=== PATIENT | female | born 1930 | race Caucasian/White ===

== ENCOUNTER 2017-08-16 12:25 | Observation (INO) ==
--- NOTE | 2017-08-16 12:43 | Emergency Department Note ---
Disposition Clinical Impression: SOB (shortness of breath) Upper respiratory infection Qualifiers: URI type: unspecified URI Qualified Code(s): J06.9 - Acute upper respiratory infection, unspecified Disposition: Admitted As Inpatient Condition: Fair Referrals: Tim Castro MD [Primary Care Provider] - Forms: ED Satisfaction Letter SOB HPI - General Chief Complaint: ED Upper Respiratory Infection Stated Complaint: cough, sinus drainage Time Seen by Provider: 08/16/17 12:38 Source: patient, family Mode of arrival: private vehicle Limitations: age Nursing Notes Reviewed: Yes Vital Signs Reviewed: Yes - History of Present Illness Patient relates that she has had increased cough and dyspnea over the last 4 days. She is seen by her primary care provider yesterday and was started on Augmentin. Today she is continued with dyspnea on exertion and oxygen saturations dropping to 87-89% with coughing or activity. She is not on home oxygen. She has some generalized weakness. Her cough is now productive of a scant amount of yellow phlegm. She reports some chills but no fever. She denies any chest pain or palpitations but does have some chest soreness with her coughing. She denies abdominal pain, back pain, nausea, vomiting or diarrhea. She denies any lower extremity complaints. She has been exposed to another family member who had a "chest cold". She is concerned this feels somewhat like she had with a pneumonia in 2013. Pt Subjective Complaint: shortness of breath, cough Onset (ago): day(s) Context: recent illness Severity: moderate Consistency/Duration: gradually worsening Improves with: rest Worsens with: exertion, coughing Associated symptoms: Reports: pain with inspiration, cough, sputum production. Denies: chest pain, fever, wheezing, orthopnea, lower extremity pain, polyuria, polydipsia, parasthesias, palpitations, hemoptysis, diaphoresis, nausea/vomiting , syncope, abdominal pain, rash Treatment prior to arrival: other (Antibiotic) Cough present: Yes Cough Description: Involuntary, Productive, Moist, Hacking Cough Frequency: Intermittent Sputum production: Yes Sputum Amount: Small Sputum Color: Yellow - Related Data Home oxygen amount: none Home Medications Medication Instructions Recorded Confirmed Aspirin 81 mg PO DAILY #0 03/29/15 08/16/17 Cholecalciferol (D-3) [Vitamin D] 2,000 unit PO DAILY #0 03/29/15 08/16/17 Cyclosporine [Restasis] 1 each OP BID #0 03/29/15 08/16/17 Diltiazem [Cardizem] 30 mg PO BID #0 03/29/15 08/16/17 Labetalol [Trandate] 100 mg PO BID #0 03/29/15 08/16/17 Losartan [Cozaar] 25 mg PO DAILY #0 03/29/15 08/16/17 Mv-Min/FA/Vit K/Lycop/Lut/Zeax 1 each PO DAILY #0 03/29/15 08/16/17 [Ocuvite Eye Plus Multi Tablet] Tramadol HCl [Ultram] 50 mg PO QID PRN #0 03/29/15 08/16/17 Calcium Carbonate/Vitamin D3 1 each PO BID 04/03/15 08/16/17 [Calcium 250+D Tablet] Cyanocobalamin (Vitamin B-12) 1,000 mg PO DAILY 04/03/15 08/16/17 [Vitamin B12] Pantoprazole Sodium [Protonix] 40 mg PO DAILY 04/03/15 08/16/17 Furosemide 20 mg PO DAILY PRN 03/18/16 08/16/17 Potassium Chloride [K-Tab ER] 20 meq PO DAILY 03/18/16 08/16/17 Alendronate Sodium [Fosamax] 70 mg PO QWEEK 08/19/16 08/16/17 Fluticasone Propionate Nasal 50 mcg NS BID PRN 08/19/16 08/16/17 [Flonase] Nitroglycerin [Nitrostat] 0.4 mg SL Q5M PRN 08/19/16 08/16/17 Amoxicillin/Clavulanate [Augmentin] 500 mg PO BIDWM 08/16/17 08/16/17 Clopidogrel [Plavix] 75 mg PO DAILY 08/16/17 08/16/17 Previous Rx's Medication Instructions Recorded Lactobacillus [Culturelle] 1 each PO BID #4 cap.sprink 04/06/15 Loratadine [Claritin] 10 mg PO DAILY #30 tablet 04/10/16 Acetaminophen [Tylenol] 650 mg PO Q6HR PRN #0 tablet 08/20/16 Atorvastatin [Lipitor] 80 mg PO HS tablet 08/20/16 Allergies Allergy/AdvReac Type Severity Reaction Status Date / Time cephalexin [From Keflex] Allergy Intermediate swelling Verified 06/28/17 18:12 lips hydrocodone Allergy Intermediate swelling Verified 06/28/17 18:12 lips tongue All systems ED: reviewed and negative except as stated. Past Medical History - Past Medical History Attestation: Yes The following information was validated with the patient. Source: patient, old records reviewed, obtained from family, nursing notes reviewed Medical history: Reports: arthritis, atrial fibrillation, coronary artery disease, GERD, hyperlipidemia, hypertension, myocardial infarction, renal disease, TIA. 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 Absent: conjunctival injection - ENT ENT exam: normal exam, normal oropharynx, mucous membranes moist - Neck Neck exam: Present: normal inspection, full ROM, trachea midline - Chest Chest inspection: Present: normal inspection, symmetric chest wall rise - Respiratory Respiratory exam: Present: normal lung sounds bilaterally, prolonged expiratory phase, other (Occasional harsh cough.). Absent: respiratory distress, wheezes - Cardiovascular Cardiovascular exam: Present: regular rate, normal rhythm, normal heart sounds. Absent: tachycardia - Abdominal Exam Abdominal exam: Present: soft, Non-Tender, normal bowel sounds. Absent: tenderness, distention, guarding, rebound, rigidity - Extremities Exam Extremities exam: Present: normal inspection, full ROM, normal capillary refill. Absent: tenderness, pedal edema, calf tenderness - Expanded Lower Extremity Exam Neurovascular/Tendon exam: Present: normal capillary refill. Absent: motor deficit, sensory deficit, tendon deficit Gait: not tested/not observed - Back Exam Back exam: Present: normal inspection, full ROM. Absent: tenderness, CVA tenderness (R), CVA tenderness (L) - Neurological Exam Neurological exam: Present: alert, oriented X3 - Psychiatric Psychiatric exam: Present: normal affect, normal mood - Skin Skin exam: Present: warm, dry, intact, normal color. Absent: cyanosis, diaphoresis, pallor Course Course Narrative: All testing has been discussed with the patient and family. I have placed a page to Dr. Benoit to discuss inpatient care for her stabilization prior for discharge. She may need assessment for home oxygen if she keeps having exertional hypoxia. Vital Signs Temperature 98.3 F 08/16/17 12:36 Pulse Rate 81 08/16/17 12:36 Respiratory Rate 22 08/16/17 12:36 Blood Pressure 149/67 08/16/17 12:36 O2 Sat by Pulse Oximetry 93 08/16/17 12:36 Temperature 98.3 F 08/16/17 12:36 Pulse Rate 79 08/16/17 13:18 Respiratory Rate 24 08/16/17 13:18 Blood Pressure 141/62 08/16/17 13:18 O2 Sat by Pulse Oximetry 93 08/16/17 13:18 Oxygen Delivery Oxygen Delivery Room Air Shortness of Breath/Dyspnea - Differential Diagnosis Likely: congestive heart failure, pneumonia - Lab Data Lab results reviewed: Yes I reviewed the patient's lab results. Result diagrams: 08/16/17 13:06 08/16/17 13:06 Lab Results 08/16/17 08/16/17 08/16/17 Range/Units 13:00 13:06 13:06 WBC 4.4 (4.3-11.1) K/mcL RBC 3.80 L (3.82-4.97) M/mcL Hgb 11.6 (11.5-15.4) g/dL Hct 36.3 (35.3-44.9) % MCV 95.5 (83.0-100.0) fL MCH 30.5 (28.0-33.3) pg MCHC 32.0 (31.6-35.5) g/dL RDW 14.1 (11.5-14.5) % Plt Count 228 (140-400) K/mcL MPV 10.3 (9.4-12.4) fL Immature Gran % 0.5 (0-4) % Seg Neutrophils % 57.2 % Lymphocytes % 23.9 % Monocytes % 15.4 % Eosinophils % 2.5 % Basophils % 0.5 % Neutrophils # 2.5 (1.6-8.9) K/mcL Lymphocytes # 1.0 (0.6-4.6) K/mcL Monocytes # 0.7 (0.0-1.3) K/mcL Eosinophils # 0.1 (0.0-0.6) K/mcL Basophils # 0.0 (0.0-0.2) K/mcL Sodium 138 (136-145) mEq/L Potassium 4.7 (3.5-5.1) mEq/L Chloride 102 (98-107) mEq/L Carbon Dioxide 31 H (23-29) mEq/L BUN 12 (8-23) mg/dL Creatinine 0.96 (0.60-1.20) mg/dL Est GFR ( Amer) > 60 (> 60) Est GFR (Non-Af Amer) 55 L (> 60) BUN/Creatinine Ratio 13 (6-26) Glucose 108 H (70-105) mg/dL Calculated Osmolality 286 (280-300) Lactic Acid (0.5-2.2) mmol/L Calcium 9.1 (8.6-10.3) mg/dL Total Bilirubin 0.4 (0.3-1.0) mg/dL Direct Bilirubin 0.1 (0.0-0.2) mg/dL Indirect Bilirubin 0.3 (0.0-1.2) mg/dL AST 15 (13-39) Units/L ALT 9 (7-52) Units/L Alkaline Phosphatase 51 (34-104) Units/L B-Natriuretic Peptide 77 (Less than 100) pg/mL Serum Total Protein 6.1 L (6.4-8.9) g/dL Albumin 3.8 (3.5-5.7) g/dL Globulin 2.3 L (2.4-3.5) g/dL Albumin/Globulin Ratio 1.7 (1.1-2.2) 08/16/17 Range/Units 13:06 WBC (4.3-11.1) K/mcL RBC (3.82-4.97) M/mcL Hgb (11.5-15.4) g/dL Hct (35.3-44.9) % MCV (83.0-100.0) fL MCH (28.0-33.3) pg MCHC (31.6-35.5) g/dL RDW (11.5-14.5) % Plt Count (140-400) K/mcL MPV (9.4-12.4) fL Immature Gran % (0-4) % Seg Neutrophils % % Lymphocytes % % Monocytes % % Eosinophils % % Basophils % % Neutrophils # (1.6-8.9) K/mcL Lymphocytes # (0.6-4.6) K/mcL Monocytes # (0.0-1.3) K/mcL Eosinophils # (0.0-0.6) K/mcL Basophils # (0.0-0.2) K/mcL Sodium (136-145) mEq/L Potassium (3.5-5.1) mEq/L Chloride (98-107) mEq/L Carbon Dioxide (23-29) mEq/L BUN (8-23) mg/dL Creatinine (0.60-1.20) mg/dL Est GFR ( Amer) (> 60) Est GFR (Non-Af Amer) (> 60) BUN/Creatinine Ratio (6-26) Glucose (70-105) mg/dL Calculated Osmolality (280-300) Lactic Acid 1.5 (0.5-2.2) mmol/L Calcium (8.6-10.3) mg/dL Total Bilirubin (0.3-1.0) mg/dL Direct Bilirubin (0.0-0.2) mg/dL Indirect Bilirubin (0.0-1.2) mg/dL AST (13-39) Units/L ALT (7-52) Units/L Alkaline Phosphatase (34-104) Units/L B-Natriuretic Peptide (Less than 100) pg/mL Serum Total Protein (6.4-8.9) g/dL Albumin (3.5-5.7) g/dL Globulin (2.4-3.5) g/dL Albumin/Globulin Ratio (1.1-2.2) - Radiology Data Radiology results reviewed: Yes I reviewed the patient's radiology results. Single view chest x-ray is performed. This does not demonstrate evidence for infiltrate, effusion, pneumothorax, foreign body or heart failure. The cardiac silhouette is enlarged. I do not see abnormality to the osseous structures of the chest. This is on my interpretation. Impressions Chest X-Ray 08/16/17 12:46 IMPRESSION: 1. No acute cardiopulmonary process. 2. Pulmonary vascular congestion and mild cardiomegaly. D/ / Franc Olmos MD / Franc Olmos MD Interpreting Provider: Franc Olmos MD - EKG Data EKG attestation: Yes I reviewed and interpreted this EKG. EKG shows normal: Reports: sinus rhythm, axis, intervals, ST-T waves Rate: Reports: normal (70) [place]/QRS: Reports: RBBB Interpretation: Reports: no acute changes
[2017-08-16] MEDS ORDERED: methylPREDNISolone 125 MG/2 ML VIAL IVP ONE (12:46)
[2017-08-16] MEDS ORDERED: Ipratropium/Albuterol Neb 3 ML IH ONE (12:46)
[2017-08-16] MEDS ORDERED: Levofloxacin 750 MG/150 ML 750 MG/150 ML BAG IVPB ONE (12:46)
[2017-08-16] MEDS ORDERED: Benzonatate 100 MG CAPSULE PO ONE (12:47)
[2017-08-16] MEDS ORDERED: 0.9 % Sodium Chloride 1,000 ML IVC SCH (13:00)
[2017-08-16 13:17] LABS: Basophils % 0.5 %; Eosinophils # 0.1 K/mcL (0.0-0.6); Eosinophils % 2.5 %; Hematocrit 36.3 % (35.3-44.9); Hemoglobin 11.6 g/dL (11.5-15.4); Immature Granulocytes % 0.5 % (0-4); Lymphocytes % 23.9 %; Mean Corpuscular Hemoglobin 30.5 pg (28.0-33.3); Mean Corpuscular Volume 95.5 fL (83.0-100.0); Mean Platelet Volume 10.3 fL (9.4-12.4); Monocytes # 0.7 K/mcL (0.0-1.3); Monocytes % 15.4 %; Neutrophils # 2.5 K/mcL (1.6-8.9); Platelet Count 228 K/mcL (140-400); Red Cell Distribution Width 14.1 % (11.5-14.5); Segmented Neutrophils % 57.2 %
[2017-08-16 13:34] LABS: Alanine Aminotransferase 9 Units/L (7-52); Albumin 3.8 g/dL (3.5-5.7); Albumin/Globulin Ratio 1.7 (1.1-2.2); Alkaline Phosphatase 51 Units/L (34-104); Aspartate Amino Transferase 15 Units/L (13-39); BUN/Creatinine Ratio 13 (6-26); Bilirubin,Direct 0.1 mg/dL (0.0-0.2); Bilirubin,Indirect 0.3 mg/dL (0.0-1.2); Bilirubin,Total 0.4 mg/dL (0.3-1.0); Blood Urea Nitrogen 12 mg/dL (8-23); Calcium 9.1 mg/dL (8.6-10.3); Carbon Dioxide 31 mEq/L (23-29); Chloride 102 mEq/L (98-107); Globulin 2.3 g/dL (2.4-3.5); Glucose 108 mg/dL (70-105); Osmolality,Calculated 286 (280-300); Potassium 4.7 mEq/L (3.5-5.1); Sodium 138 mEq/L (136-145); Total Protein 6.1 g/dL (6.4-8.9); eGFR For African Americans > 60 (> 60); eGFR For Non-African Americans 55 (> 60)
[2017-08-16] MEDS ORDERED: Albuterol 2.5 MG/3 ML NEBULIZER IH PRN (16:18)
[2017-08-16] MEDS ORDERED: Furosemide 20 MG TABLET PO PRN (16:18)
[2017-08-16] MEDS ORDERED: Acetaminophen 325 MG TABLET PO PRN (16:18)
[2017-08-16] MEDS ORDERED: Fluticasone Propionate Nasal 50 MCG/SPRAY BOTTLE NS PRN (16:18)
[2017-08-16] MEDS ORDERED: Nitroglycerin 0.4 MG TAB.SUBL SL PRN (16:18)
[2017-08-16] MEDS ORDERED: Naloxone 0.4 MG/ML INJ IVP PRN (16:18)
[2017-08-16] MEDS ORDERED: Benzonatate 100 MG CAPSULE PO PRN (16:18)
[2017-08-16] MEDS ORDERED: traMADol 50 MG TABLET PO PRN (16:18)
[2017-08-16] MEDS: 0.9 % Sodium Chloride 1,000 ML IVC SCH (17:00)
[2017-08-16] MEDS: Ipratropium/Albuterol Neb 3 ML IH SCH ×2 (17:18→22:17)
--- NOTE | 2017-08-16 20:03 | Electrocardiograph Report ---
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
[2017-08-16] MEDS: Lactobacillus 1 EACH CAP.SPRINK PO SCH (20:55)
[2017-08-16] MEDS: predniSONE 20 MG TABLET PO SCH (20:55)
[2017-08-16] MEDS: RESTASIS OPTH OP SCH (21:00)
[2017-08-17] MEDS: Ipratropium/Albuterol Neb 3 ML IH SCH ×4 (04:15→22:45)
[2017-08-17] MEDS: 0.9 % Sodium Chloride 1,000 ML IVC SCH ×2 (05:58→21:00)
[2017-08-17] MEDS: Loratadine 10 MG TABLET PO SCH (08:59)
[2017-08-17] MEDS: Lactobacillus 1 EACH CAP.SPRINK PO SCH ×2 (09:00→20:55)
[2017-08-17] MEDS: Multivit/Ca/Min/Fe/FA 1 TAB TABLET PO SCH (09:00)
[2017-08-17] MEDS: Cyanocobalamin (B-12) 1,000 MCG TABLET PO SCH (09:01)
[2017-08-17] MEDS: predniSONE 20 MG TABLET PO SCH ×2 (09:01→17:16)
[2017-08-17] MEDS: Cholecalciferol (D-3) 1,000 UNIT TABLET PO SCH (09:01)
[2017-08-17] MEDS: Aspirin 81 MG TAB.CHEW PO SCH (09:01)
[2017-08-17] MEDS: RESTASIS OPTH OP SCH (09:02)
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
[2017-08-17] MEDS ORDERED: Levofloxacin 250 MG/50 ML 250 MG/50 ML BAG IVPB SCH (13:00)
[2017-08-18] MEDS: Ipratropium/Albuterol Neb 3 ML IH SCH ×2 (04:42→09:51)
[2017-08-18] MEDS: RESTASIS OPTH OP SCH (05:00)
[2017-08-18] MEDS: Lactobacillus 1 EACH CAP.SPRINK PO SCH (08:41)
[2017-08-18] MEDS: predniSONE 20 MG TABLET PO SCH (08:42)
[2017-08-18] MEDS: Aspirin 81 MG TAB.CHEW PO SCH (08:42)
[2017-08-18] MEDS: Loratadine 10 MG TABLET PO SCH (08:42)
[2017-08-18] MEDS: Cholecalciferol (D-3) 1,000 UNIT TABLET PO SCH (08:42)
[2017-08-18] MEDS: Cyanocobalamin (B-12) 1,000 MCG TABLET PO SCH (08:42)
[2017-08-18] MEDS: Multivit/Ca/Min/Fe/FA 1 TAB TABLET PO SCH (08:42)
[2017-08-18] MEDS ORDERED: Furosemide 20 MG TABLET PO SCH (09:00)
[2017-08-18 09:22] VITALS: BP 153/61
--- NOTE | 2017-08-18 09:49 | Discharge Summary ---
Date of Encounter: 08/18/17 Time of Encounter: 09:35 - Discharge Diagnosis (1) Bronchitis Priority: Primary Status: Acute (2) Hypoxemia Priority: Secondary Status: Chronic (3) Atrial fibrillation Priority: Secondary Status: Chronic Qualifiers: Atrial fibrillation type: paroxysmal Qualified Code(s): I48.0 - Paroxysmal atrial fibrillation (4) CKD (chronic kidney disease) stage 3, GFR 30-59 ml/min Priority: Secondary Status: Chronic (5) Hypertension Priority: Secondary Status: Chronic Qualifiers: Hypertension type: essential hypertension Qualified Code(s): I10 - Essential (primary) hypertension Hospital course: Ms. Castro is a 86 year old female who came to emergency room stating she had minimally productive cough with worsening dyspnea over the past week. She saw a PCP August 15 and was given a prescription for Augmentin. When she did not feel improved she came to emergency room. She was evaluated and felt to have possible URI. She was admitted to [facility] for ongoing care needs. Initial orders were written by the emergency room physician. I saw her on August 17 and performed the history and physical. She was given IV Levaquin and Solu- Medrol in emergency room. She remained afebrile during her hospital stay. She felt dyspneic on exertion so a 6 minute walk was ordered. Saturation decreased to 86% within the first minute. Oxygen was reapplied for patient comfort and safety. She will be discharged home with oxygen 2 L/m by nasal cannula 06/09 with portable gas and concentrator. 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 I reviewed past records and noted CT scan of chest done 04/03/2015 showed findings compatible with bronchiolitis of posterior right middle lobe and groundglass infiltrate in the right lower lobe. Follow-up chest CT was recommended in 3-6 months to document resolution. Patient reports no follow-up CT was done. I will let her discuss with her PCP Dr. Castro whether a follow-up CT is needed at this time. On August 18 she felt stable for discharge home. She will follow with her PCP Dr. Castro within 1 week. - Time Spent with Patient Total time spent providing and/or coordinating discharge services: - Discharge Medications Prescriptions: Albuterol Sulfate [Albuterol Inhaler] 2 puff IH Q4HR #1 hfa.aer.ad Lactobacillus [Culturelle] 1 each PO BID #6 cap.sprink levoFLOXacin [Levaquin] 250 mg PO DAILY #3 tablet Home Medications: Aspirin 81 mg PO DAILY #0 03/29/15 [History] Cholecalciferol (D-3) [Vitamin D] 2,000 unit PO DAILY #0 03/29/15 [History] Cyclosporine [Restasis] 1 each OP BID #0 03/29/15 [History] Diltiazem [Cardizem] 30 mg PO BID #0 03/29/15 [History] Labetalol [Trandate] 100 mg PO BID #0 03/29/15 [History] Losartan [Cozaar] 25 mg PO DAILY #0 03/29/15 [History] Mv-Min/FA/Vit K/Lycop/Lut/Zeax [Ocuvite Eye Plus Multi Tablet] 1 each PO DAILY # 0 03/29/15 [History] Tramadol HCl [Ultram] 50 mg PO QID PRN #0 03/29/15 [History] Calcium Carbonate/Vitamin D3 [Calcium 250+D Tablet] 1 each PO BID 04/03/15 [ History] Cyanocobalamin (Vitamin B-12) [Vitamin B12] 1,000 mg PO DAILY 04/03/15 [History] Pantoprazole Sodium [Protonix] 40 mg PO DAILY 04/03/15 [History] Lactobacillus [Culturelle] 1 each PO BID #4 cap.sprink 04/06/15 [Rx] Furosemide 20 mg PO DAILY PRN 03/18/16 [History] Potassium Chloride [K-Tab ER] 20 meq PO DAILY 03/18/16 [History] Alendronate Sodium [Fosamax] 70 mg PO QWEEK 08/19/16 [History] Fluticasone Propionate Nasal [Flonase] 50 mcg NS BID PRN 08/19/16 [History] Nitroglycerin [Nitrostat] 0.4 mg SL Q5M PRN 08/19/16 [History] Acetaminophen [Tylenol] 650 mg PO Q6HR PRN #0 tablet 08/20/16 [Rx] Atorvastatin [Lipitor] 80 mg PO HS tablet 08/20/16 [Rx] Clopidogrel [Plavix] 75 mg PO DAILY 08/16/17 [History] Albuterol Sulfate [Albuterol Inhaler] 2 puff IH Q4HR #1 hfa.aer.ad 08/18/17 [Rx] Lactobacillus [Culturelle] 1 each PO BID #6 cap.sprink 08/18/17 [Rx] Loratadine [Claritin] 10 mg PO DAILY PRN #30 tablet 08/18/17 [Rx] levoFLOXacin [Levaquin] 250 mg PO DAILY #3 tablet 08/18/17 [Rx] Allergies/Adverse Reactions: 3 Allergy/AdvReac Type Severity Reaction Status Date / Time cephalexin [From Keflex] Allergy Intermediate swelling Verified 06/28/17 18:12 lips hydrocodone Allergy Intermediate swelling Verified 06/28/17 18:12 lips tongue Date of admission: 08/16/17 15:53 Primary care physician: Tim Castro MD - Constitutional Vitals: Temp Pulse Resp BP Pulse Ox 98.3 F 74 20 153/61 95 08/18/17 07:00 08/18/17 07:00 08/18/17 07:00 08/18/17 07:00 08/18/17 08:30 - Patient Status Disposition: Home Health Service Condition: Fair - Discharge Instructions Follow Up With: Tim Castro MD [Primary Care Provider] - 1 week - Diet and Activity Activity: resume usual activities as tolerated, wear oxygen at all times Diet: advance to your usual diet
--- NOTE | 2017-08-18 10:00 | Physician Discharge Referral ---
Home Health/Hosp Referral Info Transfer to: Home Health Attending Provider: Cy Provider in Charge Post Discharge: PCP (Tim Castro M.D.) - Diagnosis (1) Bronchitis Priority: Primary Status: Acute (2) Hypoxemia Priority: Secondary Status: Chronic (3) Atrial fibrillation Priority: Secondary Status: Chronic (4) CKD (chronic kidney disease) stage 3, GFR 30-59 ml/min Priority: Secondary Status: Chronic (5) Hypertension Priority: Secondary Status: Chronic - Respiratory Orders Oxygen / L per min (2 L/m by nasal cannula 06/09.) Smoking Cessation: Smoking cessation has been advised. For more information, call the [place] Tobacco Quit Line at 2-213-BLMZ-NOW. - Diet/Nutrition Diet/Nutrition Orders: Regular - Activity Activity Orders: Ambulate - Services Needed Following services are medically necessary services: Nursing, Home Health Aide, Physical Therapy, Occupational Therapy - Transfer Medications Prescriptions: Albuterol Sulfate [Albuterol Inhaler] 2 puff IH Q4HR #1 hfa.aer.ad Lactobacillus [Culturelle] 1 each PO BID #6 cap.sprink levoFLOXacin [Levaquin] 250 mg PO DAILY #3 tablet Home Medications: Aspirin 81 mg PO DAILY #0 03/29/15 [History] Cholecalciferol (D-3) [Vitamin D] 2,000 unit PO DAILY #0 03/29/15 [History] Cyclosporine [Restasis] 1 each OP BID #0 03/29/15 [History] Diltiazem [Cardizem] 30 mg PO BID #0 03/29/15 [History] Labetalol [Trandate] 100 mg PO BID #0 03/29/15 [History] Losartan [Cozaar] 25 mg PO DAILY #0 03/29/15 [History] Mv-Min/FA/Vit K/Lycop/Lut/Zeax [Ocuvite Eye Plus Multi Tablet] 1 each PO DAILY # 0 03/29/15 [History] Tramadol HCl [Ultram] 50 mg PO QID PRN #0 03/29/15 [History] Calcium Carbonate/Vitamin D3 [Calcium 250+D Tablet] 1 each PO BID 04/03/15 [ History] Cyanocobalamin (Vitamin B-12) [Vitamin B12] 1,000 mg PO DAILY 04/03/15 [History] Pantoprazole Sodium [Protonix] 40 mg PO DAILY 04/03/15 [History] Lactobacillus [Culturelle] 1 each PO BID #4 cap.sprink 04/06/15 [Rx] Furosemide 20 mg PO DAILY PRN 03/18/16 [History] Potassium Chloride [K-Tab ER] 20 meq PO DAILY 03/18/16 [History] Alendronate Sodium [Fosamax] 70 mg PO QWEEK 08/19/16 [History] Fluticasone Propionate Nasal [Flonase] 50 mcg NS BID PRN 08/19/16 [History] Nitroglycerin [Nitrostat] 0.4 mg SL Q5M PRN 08/19/16 [History] Acetaminophen [Tylenol] 650 mg PO Q6HR PRN #0 tablet 08/20/16 [Rx] Atorvastatin [Lipitor] 80 mg PO HS tablet 08/20/16 [Rx] Clopidogrel [Plavix] 75 mg PO DAILY 08/16/17 [History] Albuterol Sulfate [Albuterol Inhaler] 2 puff IH Q4HR #1 hfa.aer.ad 08/18/17 [Rx] Lactobacillus [Culturelle] 1 each PO BID #6 cap.sprink 08/18/17 [Rx] Loratadine [Claritin] 10 mg PO DAILY PRN #30 tablet 08/18/17 [Rx] levoFLOXacin [Levaquin] 250 mg PO DAILY #3 tablet 08/18/17 [Rx] Allergies/Adverse Reactions: 3 Allergy/AdvReac Type Severity Reaction Status Date / Time cephalexin [From Keflex] Allergy Intermediate swelling Verified 06/28/17 18:12 lips hydrocodone Allergy Intermediate swelling Verified 06/28/17 18:12 lips tongue Certification: Further, I certify that my clinical findings support that this patient is homebound (i.e. absences from home require considerable and taxing effort and are for medical reasons or buddhism services or infrequently or short duration when for other reasons) because: Homebound Reason: Leaving home requires considerable and taxing effort due to condition (COPD with hypoxemia) Attestation: My signature below is to certify that this patient is under my care and that I, or nurse practitioner, or a physician's assistant dean working with me, has a face-to -face encounter with this patient.
[2017-08-18] MEDS ORDERED: Levofloxacin 750 MG/150 ML 750 MG/150 ML BAG IVPB SCH (13:00)
== END 2017-08-18 13:25 | disposition home health service (06) ==
LOC: EMEROOPIK 12:25 → INPPIK 12:25
PROVIDERS: ADMIT Internal Medicine; ATTEND Internal Medicine

== ENCOUNTER 2018-01-04 12:24 | Observation (INO) ==
--- NOTE | 2018-01-04 12:37 | Emergency Department Note ---
Disposition Clinical Impression: SOB (shortness of breath) Pneumonia Qualifiers: Pneumonia type: due to unspecified organism Laterality: bilateral Lung loc ation: unspecified part of lung Qualified Code(s): J18.9 - Pneumonia, unspecified organism CHF (congestive heart failure) Qualifiers: Heart failure type: diastolic Heart failure chronicity: chronic Qualified Code(s): I50.32 - Chronic diastolic (congestive) heart failure Disposition: Admitted As Inpatient Condition: Good General Adult HPI - General Chief complaint: ED General Medical Stated complaint: shortness of breath, cough, congestion Time Seen by Provider: 01/04/18 12:25 Source: patient Mode of arrival: EMS Limitations: no limitations Nursing Notes Reviewed: Yes Vital Signs Reviewed: Yes - History of Present Illness HPI Narrative: Patient states she was being treated for a sinus infection that has spread to her chest. She complains of some shortness of breath and wheezing. She had a fever off and on. She denies any chest pain. She has been coughing up large amounts of greenish thick sputum. Onset (ago): day(s) (2) Location: chest Radiation: non-radiation Pain Scale: 0 Consistency: constant Improves with: nothing Worsens with: nothing Associated symptoms: Reports: cough, fever/chills, shortness of breath - Related Data Home Medications Medication Instructions Recorded Confirmed Aspirin 81 mg PO DAILY #0 03/29/15 01/04/18 Cholecalciferol (D-3) [Vitamin D] 2,000 unit PO DAILY #0 03/29/15 01/04/18 Diltiazem [Cardizem] 30 mg PO BID #0 03/29/15 01/04/18 Labetalol [Trandate] 100 mg PO BID #0 03/29/15 01/04/18 Losartan [Cozaar] 25 mg PO DAILY #0 03/29/15 01/04/18 Mv-Min/FA/Vit K/Lycop/Lut/Zeax 1 each PO DAILY #0 03/29/15 01/04/18 [Ocuvite Eye Plus Multi Tablet] Tramadol HCl [Ultram] 50 mg PO QID PRN #0 03/29/15 01/04/18 Calcium Carbonate/Vitamin D3 1 each PO BID 04/03/15 01/04/18 [Calcium 250+D Tablet] Cyanocobalamin (Vitamin B-12) 1,000 mg PO DAILY 04/03/15 01/04/18 [Vitamin B12] Pantoprazole Sodium [Protonix] 40 mg PO DAILY 04/03/15 01/04/18 Furosemide 20 mg PO DAILY PRN 03/18/16 01/04/18 Potassium Chloride [K-Tab ER] 20 meq PO DAILY 03/18/16 01/04/18 Alendronate Sodium [Fosamax] 70 mg PO QWEEK 08/19/16 01/04/18 Fluticasone Propionate Nasal 50 mcg NS BID PRN 08/19/16 01/04/18 [Flonase] Nitroglycerin [Nitrostat] 0.4 mg SL Q5M PRN 08/19/16 01/04/18 Ascorbic Acid [Vitamin C] 500 mg PO DAILY 01/04/18 01/04/18 Previous Rx's Medication Instructions Recorded Acetaminophen [Tylenol] 650 mg PO Q6HR PRN #0 tablet 08/20/16 Atorvastatin [Lipitor] 80 mg PO HS tablet 08/20/16 Albuterol Sulfate [Albuterol 2 puff IH Q4HR #1 hfa.aer.ad 08/18/17 Inhaler] Lactobacillus [Culturelle] 1 each PO BID #6 cap.sprink 08/18/17 Loratadine [Claritin] 10 mg PO DAILY PRN #30 tablet 08/18/17 Allergies Allergy/AdvReac Type Severity Reaction Status Date / Time cephalexin [From Keflex] Allergy Intermediate swelling Verified 06/28/17 18:12 lips hydrocodone Allergy Intermediate swelling Verified 06/28/17 18:12 lips tongue All systems ED: reviewed and negative except as stated. Review of Systems: As Per HPI Constitutional: Reports: as per HPI, fever Eyes: Denies: eye pain, eye discharge, vision change ENT ED: Denies: ear pain, throat pain, dental pain, hearing loss, epistaxis, congestion, dysphagia Cardiovascular: Denies: chest pain, palpitations, dyspnea on exertion, edema, syncope Respiratory: Reports: as per HPI, cough, dyspnea, wheezes, sputum production Gastrointestinal: Denies: abdominal pain, nausea, vomiting, diarrhea, constipation, hematemesis, melena, hematochezia Genitourinary: Denies: dysuria, frequency, hematuria, discharge Musculoskeletal: Denies: back pain, neck pain, arthralgia, myalgia Integumentary: Denies: rash, abrasion, lesions Neurological: Denies: headache, weakness, numbness, paresthesias, confusion, abnormal gait, vertigo Psychiatric: Denies: anxiety, depression, suicidal thoughts, homicidal thoughts, auditory hallucinations, visual hallucinations Endocrine: Denies: fatigue Hematological/Lymphatic: Denies: easy bleeding, easy bruising Past Medical History - Past Medical History Attestation: Yes The following information was validated with the patient. Source: patient, nursing notes reviewed Medical history: Reports: arthritis, atrial fibrillation, coronary artery disease, GERD, hyperlipidemia, hypertension, myocardial infarction, renal disease, TIA Surgical history: Reports: angioplasty/stent, appendectomy, hysterectomy Psychiatric history: Reports: no psych history [employer] history: Reports: ectopic - Social History Smoking Status: Never smoker Smokeless Tobacco Status: No Alcohol use: Reports: none Drug use: Reports: none Physical Exam - General Limitations: no limitations General appearance: alert, in no apparent distress - Head Head exam: atraumatic, normocephalic, normal inspection - Eye Eye exam: Present: normal appearance, PERRL, EOMI - ENT ENT exam: normal exam - Neck Neck exam: Present: normal inspection, full ROM, trachea midline - Chest Chest inspection: Present: normal inspection, symmetric chest wall rise - Respiratory Respiratory exam: Present: wheezes, prolonged expiratory phase. Absent: respiratory distress, accessory muscle use - Cardiovascular Cardiovascular exam: Present: regular rate, normal rhythm, normal heart sounds - Abdominal Exam Abdominal exam: Present: soft, Non-Tender. Absent: tenderness, distention, guarding, rebound, rigidity - Extremities Exam Extremities exam: Present: normal inspection, full ROM. Absent: tenderness, pedal edema - Back Exam Back exam: Present: normal inspection - Neurological Exam Neurological exam: Present: alert, oriented X3 - Psychiatric Psychiatric exam: Present: normal affect, normal mood - Skin Skin exam: Present: warm, dry, intact Course Vital Signs Temperature 99.4 F 01/04/18 12:26 Pulse Rate 95 01/04/18 12:26 Respiratory Rate 24 01/04/18 12:26 Blood Pressure 152/77 01/04/18 12:26 O2 Sat by Pulse Oximetry 91 01/04/18 12:26 Temperature 100.1 F H 01/04/18 14:23 Pulse Rate 86 01/04/18 14:23 Respiratory Rate 20 01/04/18 14:23 Blood Pressure 149/67 01/04/18 14:23 O2 Sat by Pulse Oximetry 97 01/04/18 14:23 Oxygen Delivery Oxygen Delivery Nasal Cannula Medical Decision Making - MDM Narrative Medical decision making narrative: I reviewed the patient's medication list Case was discussed with Dr. Benoit who accepts admission - Lab Data Lab results reviewed: Yes I reviewed the patient's lab results. Result diagrams: 01/04/18 12:52 01/04/18 12:52 Lab Results 01/04/18 01/04/18 01/04/18 Range/Units 12:52 12:52 13:38 WBC 10.8 (4.3-11.1) K/mcL RBC 3.62 L (3.82-4.97) M/mcL Hgb 11.1 L (11.5-15.4) g/dL Hct 34.6 L (35.3-44.9) % MCV 95.6 (83.0-100.0) fL MCH 30.7 (28.0-33.3) pg MCHC 32.1 (31.6-35.5) g/dL RDW 13.8 (11.5-14.5) % Plt Count 187 (140-400) K/mcL MPV 10.2 (9.4-12.4) fL Immature Gran % 0.3 (0-4) % Seg Neutrophils % 73.1 % Lymphocytes % 13.2 % Monocytes % 11.4 % Eosinophils % 1.7 % Basophils % 0.3 % Neutrophils # 7.9 (1.6-8.9) K/mcL Lymphocytes # 1.4 (0.6-4.6) K/mcL Monocytes # 1.2 (0.0-1.3) K/mcL Eosinophils # 0.2 (0.0-0.6) K/mcL Basophils # 0.0 (0.0-0.2) K/mcL Sodium 138 (136-145) mEq/L Potassium 3.9 (3.5-5.1) mEq/L Chloride 102 (98-107) mEq/L Carbon Dioxide 28 (23-29) mEq/L BUN 16 (8-23) mg/dL Creatinine 0.98 (0.60-1.20) mg/dL Est GFR ( Amer) > 60 (> 60) Est GFR (Non-Af Amer) 53 L (> 60) BUN/Creatinine Ratio 16 (6-26) Glucose 113 H (70-105) mg/dL Calculated Osmolality 288 (280-300) Lactic Acid 0.7 (0.5-2.2) mmol/L Calcium 8.6 (8.6-10.3) mg/dL Total Bilirubin 0.7 (0.3-1.0) mg/dL AST 19 (13-39) Units/L ALT 14 (7-52) Units/L Alkaline Phosphatase 46 (34-104) Units/L Serum Total Protein 6.1 L (6.4-8.9) g/dL Albumin 3.7 (3.5-5.7) g/dL Globulin 2.4 (2.4-3.5) g/dL Albumin/Globulin Ratio 1.5 (1.1-2.2) - Radiology Data Radiology results reviewed: Yes I reviewed the patient's radiology results. - EKG Data EKG #1 EKG attestation: Yes I reviewed and interpreted this EKG. EKG results narrative: EKG shows sinus rhythm rate 86 bpm her right bundle-branch pattern as well. Intervals 168 ms QRS duration 134 ms. QT interval 369 ms QTc interval 412 ms R axis of 3 degrees. They are unifocal PVCs noted.
[2018-01-04 13:00] LABS: Basophils % 0.3 %; Eosinophils # 0.2 K/mcL (0.0-0.6); Eosinophils % 1.7 %; Hematocrit 34.6 % (35.3-44.9); Hemoglobin 11.1 g/dL (11.5-15.4); Immature Granulocytes % 0.3 % (0-4); Lymphocytes # 1.4 K/mcL (0.6-4.6); Lymphocytes % 13.2 %; Mean Corpuscular HGB Conc 32.1 g/dL (31.6-35.5); Mean Corpuscular Hemoglobin 30.7 pg (28.0-33.3); Mean Corpuscular Volume 95.6 fL (83.0-100.0); Mean Platelet Volume 10.2 fL (9.4-12.4); Monocytes # 1.2 K/mcL (0.0-1.3); Monocytes % 11.4 %; Neutrophils # 7.9 K/mcL (1.6-8.9); Platelet Count 187 K/mcL (140-400); Red Blood Count 3.62 M/mcL (3.82-4.97); Red Cell Distribution Width 13.8 % (11.5-14.5); Segmented Neutrophils % 73.1 %
[2018-01-04] MEDS ORDERED: Furosemide 40 MG/4 ML VIAL IVP ONE (13:12)
[2018-01-04] MEDS ORDERED: Azithromycin 500 MG in D5% in Water 250 ML IVPB ONE (13:12)
[2018-01-04 13:18] LABS: Alanine Aminotransferase 14 Units/L (7-52); Albumin 3.7 g/dL (3.5-5.7); Albumin/Globulin Ratio 1.5 (1.1-2.2); Alkaline Phosphatase 46 Units/L (34-104); Aspartate Amino Transferase 19 Units/L (13-39); BUN/Creatinine Ratio 16 (6-26); Bilirubin,Total 0.7 mg/dL (0.3-1.0); Blood Urea Nitrogen 16 mg/dL (8-23); Calcium 8.6 mg/dL (8.6-10.3); Carbon Dioxide 28 mEq/L (23-29); Chloride 102 mEq/L (98-107); Globulin 2.4 g/dL (2.4-3.5); Glucose 113 mg/dL (70-105); Osmolality,Calculated 288 (280-300); Potassium 3.9 mEq/L (3.5-5.1); Sodium 138 mEq/L (136-145); Total Protein 6.1 g/dL (6.4-8.9); eGFR For Non-African Americans 53 (> 60)
[2018-01-04] MEDS ORDERED: Ipratropium/Albuterol Neb 3 ML IH SCH ×2 (14:30→20:00)
[2018-01-04] MEDS ORDERED: NON-FORMULARY MEDICATION 1 EACH EACH (Alendronate Sodium [Fosamax] 70 MG) PO SCH (15:42)
[2018-01-04] MEDS ORDERED: Loratadine 10 MG TABLET PO PRN (15:42)
[2018-01-04] MEDS ORDERED: Fluticasone Propionate Nasal 50 MCG/SPRAY BOTTLE NS PRN (15:42)
[2018-01-04] MEDS ORDERED: Acetaminophen 325 MG TABLET PO PRN (15:42)
[2018-01-04] MEDS ORDERED: Nitroglycerin 0.4 MG TAB.SUBL SL PRN (15:42)
[2018-01-04] MEDS ORDERED: Furosemide 20 MG TABLET PO PRN (15:42)
[2018-01-04] MEDS ORDERED: Naloxone 0.4 MG/ML INJ IVP PRN (15:42)
[2018-01-04] MEDS ORDERED: traMADol 50 MG TABLET PO PRN (15:42)
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
--- NOTE | 2018-01-04 17:35 | Electrocardiograph Report ---
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
[2018-01-04] MEDS: (Calcium Carbonate/Vitamin D3 [Calcium 250+D Tablet] ) PO SCH (21:00)
[2018-01-04] MEDS: Lactobacillus 1 EACH CAP.SPRINK PO SCH (21:38)
[2018-01-04] MEDS: Ipratropium/Albuterol Neb 3 ML IH PRN (21:57)
[2018-01-05] MEDS: Ipratropium/Albuterol Neb 3 ML IH PRN ×2 (03:12→10:34)
[2018-01-05 05:53] LABS: Basophils % 0.3 %; Eosinophils # 0.2 K/mcL (0.0-0.6); Eosinophils % 1.6 %; Hematocrit 30.7 % (35.3-44.9); Hemoglobin 9.9 g/dL (11.5-15.4); Immature Granulocytes % 0.3 % (0-4); Lymphocytes # 1.4 K/mcL (0.6-4.6); Lymphocytes % 14.8 %; Mean Corpuscular HGB Conc 32.2 g/dL (31.6-35.5); Mean Corpuscular Hemoglobin 30.9 pg (28.0-33.3); Mean Corpuscular Volume 95.9 fL (83.0-100.0); Mean Platelet Volume 10.9 fL (9.4-12.4); Monocytes # 1.3 K/mcL (0.0-1.3); Monocytes % 13.7 %; Neutrophils # 6.7 K/mcL (1.6-8.9); Platelet Count 167 K/mcL (140-400); Red Cell Distribution Width 13.6 % (11.5-14.5); Segmented Neutrophils % 69.3 %
[2018-01-05 06:12] LABS: BUN/Creatinine Ratio 16 (6-26); Blood Urea Nitrogen 16 mg/dL (8-23); Calcium 8.1 mg/dL (8.6-10.3); Carbon Dioxide 29 mEq/L (23-29); Chloride 101 mEq/L (98-107); Glucose 114 mg/dL (70-105); Osmolality,Calculated 286 (280-300); Potassium 3.8 mEq/L (3.5-5.1); Sodium 137 mEq/L (136-145); eGFR For Non-African Americans 52 (> 60)
[2018-01-05] MEDS: Ascorbic Acid 500 MG TABLET PO SCH (06:28)
[2018-01-05] MEDS: Cyanocobalamin (B-12) 1,000 MCG TABLET PO SCH (08:14)
[2018-01-05] MEDS: Lactobacillus 1 EACH CAP.SPRINK PO SCH ×2 (08:14→20:41)
[2018-01-05] MEDS: Cholecalciferol (D-3) 1,000 UNIT TABLET PO SCH (08:14)
[2018-01-05] MEDS: Aspirin 81 MG TAB.CHEW PO SCH (08:15)
[2018-01-05] MEDS ORDERED: [UNRECOGNIZED DRUG - OTHER] PO SCH (09:00)
[2018-01-05] MEDS: (Calcium Carbonate/Vitamin D3 [Calcium 250+D Tablet] ) PO SCH ×2 (09:22→20:46)
[2018-01-05] MEDS: [UNRECOGNIZED DRUG - OTHER] PO SCH (09:23)
--- NOTE | 2018-01-05 10:24 | Internal Med Progress Note ---
Date of Encounter: 01/05/18 Time of Encounter: 10:05 - Assessment and plan (1) Pneumonia Current Visit: Yes Status: Acute Assessment and plan: January 05. Continue Zithromax and lactobacillus. Will add IV Levaquin Qualifiers: Pneumonia type: due to unspecified organism Laterality: bilateral Lung location: unspecified part of lung Qualified Code(s): J18.9 - Pneumonia, unspecified organism (2) CHF (congestive heart failure) Current Visit: Yes Status: Chronic Assessment and plan: January 05. BN peptide 353. Will schedule Lasix Qualifiers: Heart failure type: diastolic Heart failure chronicity: chronic Qualified Code(s): I50.32 - Chronic diastolic (congestive) heart failure (3) CKD (chronic kidney disease) stage 3, GFR 30-59 ml/min Current Visit: No Status: Chronic Assessment and plan: January 05. Creatinine minimally changed at 1.00 with estimated GFR 52. Continue to monitor. (4) Hypertension Current Visit: No Status: Chronic Assessment and plan: January 05. Continue Cozaar and labetalol. Qualifiers: Hypertension type: essential hypertension Qualified Code(s): I10 - Essential (primary) hypertension (5) Anemia Current Visit: Yes Status: Acute Assessment and plan: January 05. Present intermittently since October 2013. Order anemia testing in a.m. Qualifiers: Anemia type: unspecified type Qualified Code(s): D64.9 - Anemia, unspecified - Subjective Interval history: January 05. She has no new complaints. She states her breathing is slightly improved. She still feels significantly dyspneic and reports cough productive of green/yellow sputum. - Constitutional Vitals: Temp Pulse Resp BP Pulse Ox 98.6 F 77 16 122/62 94 01/05/18 07:12 01/05/18 07:12 01/05/18 07:12 01/05/18 07:12 01/05/18 07:12 Exam: She is lying on her left side in bed and appears slightly dyspneic at rest. Her affect is overall cheerful. I reviewed her medications and lab results. Internal Medicine: Result - Labs CBC & Chem 7: 01/05/18 05:08 01/05/18 05:08 Labs: Short CBC 01/04/18 01/05/18 Range/Units 12:52 05:08 WBC 10.8 9.7 (4.3-11.1) K/mcL Hgb 11.1 L 9.9 L (11.5-15.4) g/dL Hct 34.6 L 30.7 L (35.3-44.9) % Plt Count 187 167 (140-400) K/mcL Neutrophils # 7.9 6.7 (1.6-8.9) K/mcL BMP 01/04/18 01/05/18 12:52 05:08 Sodium 138 137 Potassium 3.9 3.8 Chloride 102 101 Carbon Dioxide 28 29 BUN 16 16 Creatinine 0.98 1.00 Glucose 113 H 114 H Calcium 8.6 8.1 L Cardiac Enzymes 01/04/18 01/04/18 01/05/18 Range/Units 16:41 22:23 05:08 Troponin I 0.06 H* 0.05 H* 0.04 H* (< 0.04) ng/mL Liver Function 01/04/18 Range/Units 12:52 Total Bilirubin 0.7 (0.3-1.0) mg/dL AST 19 (13-39) Units/L ALT 14 (7-52) Units/L Alkaline Phosphatase 46 (34-104) Units/L Albumin 3.7 (3.5-5.7) g/dL - Impressions Impressions Chest X-Ray 01/04/18 12:35 IMPRESSION: 1. Cardiomegaly with vascular congestion and interstitial infiltrates likely representing edema and congestive failure. D/ / Don Szymanski MD / Don Szymanski MD Interpreting Provider: Don Szymanski MD Chest X-Ray 01/05/18 07:00 IMPRESSION: 1. Improving congestive heart failure. D/ / Jessee Grayson MD / Jessee Grayson MD Interpreting Provider: Jessee Grayson MD Consult Discharge Plan - Plan Referrals: Tim Castro MD [Primary Care Provider] - 1 week
[2018-01-05] MEDS: Furosemide 40 MG TABLET PO SCH (12:43)
[2018-01-05] MEDS: Levofloxacin 500 MG/100 ML 500 MG/100 ML BAG IVPB SCH (12:43)
[2018-01-05] MEDS: Azithromycin 500 MG in D5% in Water 250 ML IVPB SCH (14:23)
[2018-01-06] MEDS: Ascorbic Acid 500 MG TABLET PO SCH (06:43)
[2018-01-06 06:46] LABS: Basophils % 0.2 %; Eosinophils # 0.2 K/mcL (0.0-0.6); Eosinophils % 2.2 %; Hematocrit 30.5 % (35.3-44.9); Hemoglobin 9.9 g/dL (11.5-15.4); Immature Granulocytes % 0.3 % (0-4); Lymphocytes # 1.3 K/mcL (0.6-4.6); Lymphocytes % 14.8 %; Mean Corpuscular HGB Conc 32.5 g/dL (31.6-35.5); Mean Corpuscular Hemoglobin 31.1 pg (28.0-33.3); Mean Corpuscular Volume 95.9 fL (83.0-100.0); Mean Platelet Volume 10.5 fL (9.4-12.4); Monocytes # 1.2 K/mcL (0.0-1.3); Neutrophils # 6.3 K/mcL (1.6-8.9); Platelet Count 177 K/mcL (140-400); Red Blood Count 3.18 M/mcL (3.82-4.97); Red Cell Distribution Width 13.4 % (11.5-14.5); Segmented Neutrophils % 69.5 %
[2018-01-06 09:07] LABS: % Iron Saturation 4 % (15-50); Iron 11 mcg/dL (50-170); Transferrin 213 mg/dL (203-362)
[2018-01-06] MEDS: Aspirin 81 MG TAB.CHEW PO SCH (09:19)
[2018-01-06] MEDS: Levofloxacin 500 MG/100 ML 500 MG/100 ML BAG IVPB SCH (09:19)
[2018-01-06] MEDS: Lactobacillus 1 EACH CAP.SPRINK PO SCH ×2 (09:19→21:13)
[2018-01-06] MEDS: Cyanocobalamin (B-12) 1,000 MCG TABLET PO SCH (09:19)
[2018-01-06] MEDS: Cholecalciferol (D-3) 1,000 UNIT TABLET PO SCH (09:19)
[2018-01-06] MEDS: [UNRECOGNIZED DRUG - OTHER] PO SCH (09:19)
[2018-01-06] MEDS: Furosemide 40 MG TABLET PO SCH (09:19)
[2018-01-06] MEDS: (Calcium Carbonate/Vitamin D3 [Calcium 250+D Tablet] ) PO SCH ×2 (09:23→21:14)
[2018-01-06 09:26] LABS: Ferritin 85 ng/mL (10-120)
[2018-01-06 09:32] LABS: Folate > 22.3 ng/mL (3.0-16.0); Vitamin B12 1451 pg/mL (250-1100)
--- NOTE | 2018-01-06 10:20 | Internal Med Progress Note ---
Date of Encounter: 01/06/18 Time of Encounter: 10:12 - Assessment and plan (1) Pneumonia Current Visit: Yes Status: Acute Assessment and plan: January 05. Continue Zithromax and lactobacillus. Will add IV Levaquin Qualifiers: Pneumonia type: due to unspecified organism Laterality: bilateral Lung location: unspecified part of lung Qualified Code(s): J18.9 - Pneumonia, unspecified organism (2) CHF (congestive heart failure) Current Visit: Yes Status: Chronic Assessment and plan: January 05. BN peptide 353. Will schedule Lasix January 06. Continue Lasix. Will change labetalol to low-dose Toprol-XL since she has borderline hypotension. Recheck labs in a.m. Qualifiers: Heart failure type: diastolic Heart failure chronicity: chronic Qualified Code(s): I50.32 - Chronic diastolic (congestive) heart failure (3) CKD (chronic kidney disease) stage 3, GFR 30-59 ml/min Current Visit: No Status: Chronic Assessment and plan: January 05. Creatinine minimally changed at 1.00 with estimated GFR 52. Continue to monitor. (4) Hypertension Current Visit: No Status: Chronic Assessment and plan: January 05. Continue Cozaar and labetalol. January 06. Continue Cozaar. Change labetalol to low-dose Toprol-XL Qualifiers: Hypertension type: essential hypertension Qualified Code(s): I10 - Essential (primary) hypertension (5) Anemia Current Visit: Yes Status: Acute Assessment and plan: January 05. Present intermittently since October 2013. Order anemia testing in a.m. January 06. Anemia testing showed iron 11, transferrin saturation 4%, transferrin 213, ferritin 85, B12 1451, and folate > 22.3. Discontinue supplemental B12 and start ferrous sulfate with ascorbic acid in a.m. Qualifiers: Anemia type: unspecified type Qualified Code(s): D64.9 - Anemia, unspecified - Subjective Interval history: January 05. She has no new complaints. She states her breathing is slightly improved. She still feels significantly dyspneic and reports cough productive of green/yellow sputum. January 06. She has no new complaints. She feels minimally improved. - Constitutional Vitals: Temp Pulse Resp BP Pulse Ox 98.9 F 84 15 123/61 94 01/06/18 06:58 01/06/18 06:58 01/06/18 06:58 01/06/18 06:58 01/06/18 06:58 Exam: She is lying in bed and appears in no significant distress. She coughed occasionally during examination. Lungs show no wheezes or crackles. I reviewed her medications and lab results. Internal Medicine: Result - Labs CBC & Chem 7: 01/06/18 06:12 01/05/18 05:08 Labs: Short CBC 01/06/18 Range/Units 06:12 WBC 9.0 (4.3-11.1) K/mcL Hgb 9.9 L (11.5-15.4) g/dL Hct 30.5 L (35.3-44.9) % Plt Count 177 (140-400) K/mcL Neutrophils # 6.3 (1.6-8.9) K/mcL Consult Discharge Plan - Plan Referrals: Tim Castro MD [Primary Care Provider] - 1 week
[2018-01-06] MEDS: Ipratropium/Albuterol Neb 3 ML IH PRN (10:33)
[2018-01-06] MEDS: Azithromycin 500 MG in D5% in Water 250 ML IVPB SCH (12:54)
[2018-01-07] MEDS: Ascorbic Acid 500 MG TABLET PO SCH (06:28)
[2018-01-07 06:35] LABS: Basophils % 0.4 %; Eosinophils # 0.3 K/mcL (0.0-0.6); Eosinophils % 3.3 %; Hematocrit 29.9 % (35.3-44.9); Hemoglobin 9.4 g/dL (11.5-15.4); Immature Granulocytes % 0.5 % (0-4); Lymphocytes # 1.2 K/mcL (0.6-4.6); Lymphocytes % 15.3 %; Mean Corpuscular HGB Conc 31.4 g/dL (31.6-35.5); Mean Corpuscular Hemoglobin 30.2 pg (28.0-33.3); Mean Corpuscular Volume 96.1 fL (83.0-100.0); Mean Platelet Volume 10.3 fL (9.4-12.4); Monocytes # 1.1 K/mcL (0.0-1.3); Monocytes % 14.9 %; Platelet Count 190 K/mcL (140-400); Red Blood Count 3.11 M/mcL (3.82-4.97); Red Cell Distribution Width 13.3 % (11.5-14.5); Segmented Neutrophils % 65.6 %
[2018-01-07 06:54] LABS: Calcium 7.7 mg/dL (8.6-10.3); Potassium 4.2 mEq/L (3.5-5.1)
[2018-01-07] MEDS: Ipratropium/Albuterol Neb 3 ML IH PRN (08:58)
[2018-01-07] MEDS: Lactobacillus 1 EACH CAP.SPRINK PO SCH (09:22)
[2018-01-07] MEDS: Aspirin 81 MG TAB.CHEW PO SCH ×2 (09:22→14:28)
[2018-01-07] MEDS: Furosemide 40 MG TABLET PO SCH ×2 (09:22→12:49)
[2018-01-07] MEDS: Cholecalciferol (D-3) 1,000 UNIT TABLET PO SCH (09:22)
[2018-01-07] MEDS: [UNRECOGNIZED DRUG - OTHER] PO SCH (09:22)
[2018-01-07] MEDS: Metoprolol XL (24 HR) Succ 25 MG TAB.ER.24H PO SCH ×2 (09:22→12:49)
[2018-01-07] MEDS: (Calcium Carbonate/Vitamin D3 [Calcium 250+D Tablet] ) PO SCH ×2 (09:23→20:28)
[2018-01-07] MEDS: Azithromycin 500 MG in D5% in Water 250 ML IVPB SCH (13:56)
--- NOTE | 2018-01-07 14:12 | Internal Med Progress Note ---
Date of Encounter: 01/07/18 Time of Encounter: 14:00 - Assessment and plan (1) Pneumonia Current Visit: Yes Status: Acute Assessment and plan: January 05. Continue Zithromax and lactobacillus. Will add IV Levaquin January 07. She has remained afebrile for 48 hours. Discontinue antibiotic and probiotic. Qualifiers: Pneumonia type: due to unspecified organism Laterality: bilateral Lung location: unspecified part of lung Qualified Code(s): J18.9 - Pneumonia, unspecified organism (2) CHF (congestive heart failure) Current Visit: Yes Status: Chronic Assessment and plan: January 05. BN peptide 353. Will schedule Lasix January 06. Continue Lasix. Will change labetalol to low-dose Toprol-XL since she has borderline hypotension. Recheck labs in a.m. January 07. BN peptide significantly improved at 138. Continue Lasix, Cozaar, and Toprol. Qualifiers: Heart failure type: diastolic Heart failure chronicity: chronic Qualified Code(s): I50.32 - Chronic diastolic (congestive) heart failure (3) CKD (chronic kidney disease) stage 3, GFR 30-59 ml/min Current Visit: No Status: Chronic Assessment and plan: January 05. Creatinine minimally changed at 1.00 with estimated GFR 52. Continue to monitor. January 07. Creatinine slightly higher at 1.14. Continue to monitor. (4) Hypertension Current Visit: No Status: Chronic Assessment and plan: January 05. Continue Cozaar and labetalol. January 06. Continue Cozaar. Change labetalol to low-dose Toprol-XL Qualifiers: Hypertension type: essential hypertension Qualified Code(s): I10 - Essential (primary) hypertension (5) Anemia Current Visit: Yes Status: Acute Assessment and plan: January 05. Present intermittently since October 2013. Order anemia testing in a.m. January 06. Anemia testing showed iron 11, transferrin saturation 4%, transferrin 213, ferritin 85, B12 1451, and folate > 22.3. Discontinue supplemental B12 and start ferrous sulfate with ascorbic acid in a.m. Qualifiers: Anemia type: unspecified type Qualified Code(s): D64.9 - Anemia, unspecified - Subjective Interval history: January 05. She has no new complaints. She states her breathing is slightly improved. She still feels significantly dyspneic and reports cough productive of green/yellow sputum. January 06. She has no new complaints. She feels minimally improved. January 07. She has no new complaints. She states though she is slightly improved she is still significantly weaker than her baseline and does not feel she can go home at this time. - Constitutional Vitals: Temp Pulse Resp BP Pulse Ox 98.4 F 81 16 124/63 94 01/07/18 06:48 01/07/18 06:48 01/07/18 08:59 01/07/18 06:48 01/07/18 08:59 Exam: She is resting in bed and appears in no severe distress. She does have slight dyspnea with talking. I reviewed her medications and lab results. Internal Medicine: Result - Labs CBC & Chem 7: 01/07/18 06:17 01/07/18 06:17 Labs: Short CBC 01/07/18 Range/Units 06:17 WBC 7.6 (4.3-11.1) K/mcL Hgb 9.4 L (11.5-15.4) g/dL Hct 29.9 L (35.3-44.9) % Plt Count 190 (140-400) K/mcL Neutrophils # 5.0 (1.6-8.9) K/mcL BMP 01/07/18 06:17 Sodium 136 Potassium 4.2 Chloride 101 Carbon Dioxide 28 BUN 18 Creatinine 1.14 Glucose 126 H Calcium 7.7 L Consult Discharge Plan - Plan Referrals: Tim Castro MD [Primary Care Provider] - 1 week
[2018-01-07] MEDS ORDERED: Levofloxacin 750 MG/150 ML 750 MG/150 ML BAG IVPB SCH (17:00)
[2018-01-08] MEDS: Ascorbic Acid 500 MG TABLET PO SCH (06:36)
[2018-01-08 06:47] LABS: Basophils % 0.3 %; Eosinophils # 0.3 K/mcL (0.0-0.6); Eosinophils % 3.4 %; Hematocrit 31.5 % (35.3-44.9); Hemoglobin 10.2 g/dL (11.5-15.4); Immature Granulocytes % 0.5 % (0-4); Lymphocytes # 1.3 K/mcL (0.6-4.6); Lymphocytes % 17.6 %; Mean Corpuscular HGB Conc 32.4 g/dL (31.6-35.5); Mean Corpuscular Hemoglobin 30.9 pg (28.0-33.3); Mean Corpuscular Volume 95.5 fL (83.0-100.0); Mean Platelet Volume 10.5 fL (9.4-12.4); Monocytes # 1.1 K/mcL (0.0-1.3); Monocytes % 15.1 %; Neutrophils # 4.7 K/mcL (1.6-8.9); Platelet Count 217 K/mcL (140-400); Segmented Neutrophils % 63.1 %
[2018-01-08 07:08] LABS: BUN/Creatinine Ratio 16 (6-26); Blood Urea Nitrogen 14 mg/dL (8-23); Carbon Dioxide 28 mEq/L (23-29); Chloride 101 mEq/L (98-107); Chol/HDL Ratio 2.3 (0-4.9); Cholesterol 113 mg/dL (< 200); Glucose 122 mg/dL (70-105); HDL Cholesterol 49 mg/dL (40-59); LDL Cholesterol,Calculated 54 mg/dL (0-99); Osmolality,Calculated 282 (280-300); Potassium 4.4 mEq/L (3.5-5.1); Sodium 135 mEq/L (136-145); Triglycerides 48 mg/dL (< 150); eGFR For Non-African Americans 60 (> 60)
[2018-01-08] MEDS: Cholecalciferol (D-3) 1,000 UNIT TABLET PO SCH (08:57)
[2018-01-08] MEDS: [UNRECOGNIZED DRUG - OTHER] PO SCH (08:57)
[2018-01-08] MEDS: Metoprolol XL (24 HR) Succ 25 MG TAB.ER.24H PO SCH (08:57)
[2018-01-08] MEDS: Furosemide 40 MG TABLET PO SCH (08:58)
[2018-01-08] MEDS: (Calcium Carbonate/Vitamin D3 [Calcium 250+D Tablet] ) PO SCH ×2 (09:03→20:05)
[2018-01-08] MEDS: Ipratropium/Albuterol Neb 3 ML IH PRN (09:55)
--- NOTE | 2018-01-08 10:09 | Internal Med Progress Note ---
Date of Encounter: 01/08/18 Time of Encounter: 10:00 - Assessment and plan (1) Pneumonia Current Visit: Yes Status: Acute Assessment and plan: January 05. Continue Zithromax and lactobacillus. Will add IV Levaquin January 07. She has remained afebrile for 48 hours. Discontinue antibiotic and probiotic. Qualifiers: Pneumonia type: due to unspecified organism Laterality: bilateral Lung location: unspecified part of lung Qualified Code(s): J18.9 - Pneumonia, unspecified organism (2) CHF (congestive heart failure) Current Visit: Yes Status: Chronic Assessment and plan: January 05. BN peptide 353. Will schedule Lasix January 06. Continue Lasix. Will change labetalol to low-dose Toprol-XL since she has borderline hypotension. Recheck labs in a.m. January 07. BN peptide significantly improved at 138. Continue Lasix, Cozaar, and Toprol. Qualifiers: Heart failure type: diastolic Heart failure chronicity: chronic Qualified Code(s): I50.32 - Chronic diastolic (congestive) heart failure (3) CKD (chronic kidney disease) stage 3, GFR 30-59 ml/min Current Visit: No Status: Chronic Assessment and plan: January 05. Creatinine minimally changed at 1.00 with estimated GFR 52. Continue to monitor. January 07. Creatinine slightly higher at 1.14. Continue to monitor. January 08. Creatinine improved to 0.89. Continue present regimen. (4) Hypertension Current Visit: No Status: Chronic Assessment and plan: January 05. Continue Cozaar and labetalol. January 06. Continue Cozaar. Change labetalol to low-dose Toprol-XL Qualifiers: Hypertension type: essential hypertension Qualified Code(s): I10 - Essential (primary) hypertension (5) Anemia Current Visit: Yes Status: Acute Assessment and plan: January 05. Present intermittently since October 2013. Order anemia testing in a.m. January 06. Anemia testing showed iron 11, transferrin saturation 4%, transferrin 213, ferritin 85, B12 1451, and folate > 22.3. Discontinue supplemental B12 and start ferrous sulfate with ascorbic acid in a.m. Qualifiers: Anemia type: unspecified type Qualified Code(s): D64.9 - Anemia, unspecified - Subjective Interval history: January 05. She has no new complaints. She states her breathing is slightly improved. She still feels significantly dyspneic and reports cough productive of green/yellow sputum. January 06. She has no new complaints. She feels minimally improved. January 07. She has no new complaints. She states though she is slightly improved she is still significantly weaker than her baseline and does not feel she can go home at this time. January 08. She has no new complaints but states she is still very weak and can hardly transfer from bed to bedside commode. - Constitutional Vitals: Temp Pulse Resp BP Pulse Ox 98.3 F 89 16 149/70 92 01/08/18 06:42 01/08/18 06:42 01/08/18 09:57 01/08/18 06:42 01/08/18 09:57 Exam: She is lying in bed and appears in no severe distress. She coughed occasionally during the visit. Her affect is bright and cheerful. I reviewed her medications and lab results. Internal Medicine: Result - Labs CBC & Chem 7: 01/08/18 05:55 01/08/18 05:55 Labs: Short CBC 01/08/18 Range/Units 05:55 WBC 7.4 (4.3-11.1) K/mcL Hgb 10.2 L (11.5-15.4) g/dL Hct 31.5 L (35.3-44.9) % Plt Count 217 (140-400) K/mcL Neutrophils # 4.7 (1.6-8.9) K/mcL BMP 01/08/18 05:55 Sodium 135 L Potassium 4.4 Chloride 101 Carbon Dioxide 28 BUN 14 Creatinine 0.89 Glucose 122 H Calcium 8.0 L Consult Discharge Plan - Plan Referrals: Tim Castro MD [Primary Care Provider] - 1 week
[2018-01-09] MEDS: Ascorbic Acid 500 MG TABLET PO SCH (05:52)
[2018-01-09] MEDS: [UNRECOGNIZED DRUG - OTHER] PO SCH (08:16)
[2018-01-09] MEDS: Cholecalciferol (D-3) 1,000 UNIT TABLET PO SCH (08:16)
[2018-01-09] MEDS: Metoprolol XL (24 HR) Succ 25 MG TAB.ER.24H PO SCH (08:17)
[2018-01-09] MEDS: Furosemide 40 MG TABLET PO SCH (08:17)
[2018-01-09] MEDS: (Calcium Carbonate/Vitamin D3 [Calcium 250+D Tablet] ) PO SCH ×2 (08:38→22:20)
[2018-01-09] MEDS: Aspirin 81 MG TAB.CHEW PO SCH (14:08)
--- NOTE | 2018-01-09 18:06 | Internal Med Progress Note ---
Date of Encounter: 01/09/18 Time of Encounter: 17:55 - Assessment and plan (1) Pneumonia Current Visit: Yes Status: Acute Assessment and plan: January 05. Continue Zithromax and lactobacillus. Will add IV Levaquin January 07. She has remained afebrile for 48 hours. Discontinue antibiotic and probiotic. Qualifiers: Pneumonia type: due to unspecified organism Laterality: bilateral Lung location: unspecified part of lung Qualified Code(s): J18.9 - Pneumonia, unspecified organism (2) CHF (congestive heart failure) Current Visit: Yes Status: Chronic Assessment and plan: January 05. BN peptide 353. Will schedule Lasix January 06. Continue Lasix. Will change labetalol to low-dose Toprol-XL since she has borderline hypotension. Recheck labs in a.m. January 07. BN peptide significantly improved at 138. Continue Lasix, Cozaar, and Toprol. Qualifiers: Heart failure type: diastolic Heart failure chronicity: chronic Qualified Code(s): I50.32 - Chronic diastolic (congestive) heart failure (3) CKD (chronic kidney disease) stage 3, GFR 30-59 ml/min Current Visit: No Status: Chronic Assessment and plan: January 05. Creatinine minimally changed at 1.00 with estimated GFR 52. Continue to monitor. January 07. Creatinine slightly higher at 1.14. Continue to monitor. January 08. Creatinine improved to 0.89. Continue present regimen. (4) Hypertension Current Visit: No Status: Chronic Assessment and plan: January 05. Continue Cozaar and labetalol. January 06. Continue Cozaar. Change labetalol to low-dose Toprol-XL January 09. Blood pressure stable. Continue present regimen Qualifiers: Hypertension type: essential hypertension Qualified Code(s): I10 - Essential (primary) hypertension (5) Anemia Current Visit: Yes Status: Acute Assessment and plan: January 05. Present intermittently since October 2013. Order anemia testing in a.m. January 06. Anemia testing showed iron 11, transferrin saturation 4%, transferrin 213, ferritin 85, B12 1451, and folate > 22.3. Discontinue supplemental B12 and start ferrous sulfate with ascorbic acid in a.m. January 09. Hemoglobin improved to 10.2 yesterday. Continue present regimen Qualifiers: Anemia type: unspecified type Qualified Code(s): D64.9 - Anemia, unspecified - Subjective Interval history: January 05. She has no new complaints. She states her breathing is slightly improved. She still feels significantly dyspneic and reports cough productive of green/yellow sputum. January 06. She has no new complaints. She feels minimally improved. January 07. She has no new complaints. She states though she is slightly improved she is still significantly weaker than her baseline and does not feel she can go home at this time. January 08. She has no new complaints but states she is still very weak and can hardly transfer from bed to bedside commode. January 09. She has no new complaints. - Constitutional Vitals: Temp Pulse Resp BP Pulse Ox 98.2 F 80 14 128/60 93 01/09/18 07:00 01/09/18 07:00 01/09/18 07:00 01/09/18 07:00 01/09/18 07:00 Exam: She is resting comfortably in a chair at bedside and appears in no acute distress. Her affect is bright and cheerful. I reviewed her medications and lab results. Internal Medicine: Result - Labs CBC & Chem 7: 01/08/18 05:55 01/08/18 05:55 Consult Discharge Plan - Plan Referrals: Tim Castro MD [Primary Care Provider] - 1 week
[2018-01-10] MEDS: Ascorbic Acid 500 MG TABLET PO SCH (05:44)
[2018-01-10] MEDS: Furosemide 40 MG TABLET PO SCH (07:52)
[2018-01-10] MEDS: [UNRECOGNIZED DRUG - OTHER] PO SCH (07:52)
[2018-01-10] MEDS: Cholecalciferol (D-3) 1,000 UNIT TABLET PO SCH (07:52)
[2018-01-10] MEDS: (Calcium Carbonate/Vitamin D3 [Calcium 250+D Tablet] ) PO SCH ×2 (07:52→22:18)
[2018-01-10] MEDS: Metoprolol XL (24 HR) Succ 25 MG TAB.ER.24H PO SCH (07:52)
--- NOTE | 2018-01-10 15:22 | Internal Med Progress Note ---
Date of Encounter: 01/10/18 Time of Encounter: 15:15 - Assessment and plan (1) Pneumonia Current Visit: Yes Status: Acute Assessment and plan: January 05. Continue Zithromax and lactobacillus. Will add IV Levaquin January 07. She has remained afebrile for 48 hours. Discontinue antibiotic and probiotic. Qualifiers: Pneumonia type: due to unspecified organism Laterality: bilateral Lung location: unspecified part of lung Qualified Code(s): J18.9 - Pneumonia, unspecified organism (2) CHF (congestive heart failure) Current Visit: Yes Status: Chronic Assessment and plan: January 05. BN peptide 353. Will schedule Lasix January 06. Continue Lasix. Will change labetalol to low-dose Toprol-XL since she has borderline hypotension. Recheck labs in a.m. January 07. BN peptide significantly improved at 138. Continue Lasix, Cozaar, and Toprol. Qualifiers: Heart failure type: diastolic Heart failure chronicity: chronic Qualified Code(s): I50.32 - Chronic diastolic (congestive) heart failure (3) CKD (chronic kidney disease) stage 3, GFR 30-59 ml/min Current Visit: No Status: Chronic Assessment and plan: January 05. Creatinine minimally changed at 1.00 with estimated GFR 52. Continue to monitor. January 07. Creatinine slightly higher at 1.14. Continue to monitor. January 08. Creatinine improved to 0.89. Continue present regimen. (4) Hypertension Current Visit: No Status: Chronic Assessment and plan: January 05. Continue Cozaar and labetalol. January 06. Continue Cozaar. Change labetalol to low-dose Toprol-XL January 09. Blood pressure stable. Continue present regimen Qualifiers: Hypertension type: essential hypertension Qualified Code(s): I10 - Essential (primary) hypertension (5) Anemia Current Visit: Yes Status: Acute Assessment and plan: January 05. Present intermittently since October 2013. Order anemia testing in a.m. January 06. Anemia testing showed iron 11, transferrin saturation 4%, transferrin 213, ferritin 85, B12 1451, and folate > 22.3. Discontinue supplemental B12 and start ferrous sulfate with ascorbic acid in a.m. January 09. Hemoglobin improved to 10.2 yesterday. Continue present regimen Qualifiers: Anemia type: unspecified type Qualified Code(s): D64.9 - Anemia, unspecified - Subjective Interval history: January 05. She has no new complaints. She states her breathing is slightly improved. She still feels significantly dyspneic and reports cough productive of green/yellow sputum. January 06. She has no new complaints. She feels minimally improved. January 07. She has no new complaints. She states though she is slightly improved she is still significantly weaker than her baseline and does not feel she can go home at this time. January 08. She has no new complaints but states she is still very weak and can hardly transfer from bed to bedside commode. January 09. She has no new complaints. January 10. She has no new complaints. She feels slightly improved. States she is very weak overall and feels she needs therapy to get stronger before returning home. - Constitutional Vitals: Temp Pulse Resp BP Pulse Ox 98.3 F 79 18 122/64 93 01/10/18 15:02 01/10/18 15:02 01/10/18 15:02 01/10/18 15:02 01/10/18 15:02 Exam: She is lying in bed resting comfortably. She coughed occasionally during the visit. Her affect is overall bright and cheerful. I reviewed her medications and past lab results. Internal Medicine: Result - Labs CBC & Chem 7: 01/08/18 05:55 01/08/18 05:55 Consult Discharge Plan - Plan Referrals: Tim Castro MD [Primary Care Provider] - 1 week
[2018-01-11] MEDS: Ascorbic Acid 500 MG TABLET PO SCH (06:06)
[2018-01-11 06:09] LABS: Basophils # 0.1 K/mcL (0.0-0.2); Basophils % 0.8 %; Eosinophils # 0.3 K/mcL (0.0-0.6); Eosinophils % 5.1 %; Hematocrit 32.3 % (35.3-44.9); Hemoglobin 10.5 g/dL (11.5-15.4); Lymphocytes # 1.8 K/mcL (0.6-4.6); Lymphocytes % 28.6 %; Mean Corpuscular HGB Conc 32.5 g/dL (31.6-35.5); Mean Corpuscular Hemoglobin 30.6 pg (28.0-33.3); Mean Corpuscular Volume 94.2 fL (83.0-100.0); Mean Platelet Volume 9.1 fL (9.4-12.4); Monocytes # 0.7 K/mcL (0.0-1.3); Neutrophils # 3.4 K/mcL (1.6-8.9); Platelet Count 295 K/mcL (140-400); Red Blood Count 3.43 M/mcL (3.82-4.97); Red Cell Distribution Width 12.9 % (11.5-14.5); Segmented Neutrophils % 53.5 %
[2018-01-11 06:46] LABS: BUN/Creatinine Ratio 17 (6-26); Blood Urea Nitrogen 15 mg/dL (8-23); Calcium 8.7 mg/dL (8.6-10.3); Carbon Dioxide 31 mEq/L (23-29); Chloride 101 mEq/L (98-107); Glucose 107 mg/dL (70-105); Osmolality,Calculated 287 (280-300); Potassium 4.3 mEq/L (3.5-5.1); Sodium 138 mEq/L (136-145); eGFR For Non-African Americans > 60 (> 60)
[2018-01-11] MEDS: [UNRECOGNIZED DRUG - OTHER] PO SCH (08:36)
[2018-01-11] MEDS: Cholecalciferol (D-3) 1,000 UNIT TABLET PO SCH (08:36)
[2018-01-11] MEDS: (Calcium Carbonate/Vitamin D3 [Calcium 250+D Tablet] ) PO SCH ×2 (08:37→21:02)
[2018-01-11] MEDS: Metoprolol XL (24 HR) Succ 25 MG TAB.ER.24H PO SCH (09:20)
[2018-01-11] MEDS: Furosemide 40 MG TABLET PO SCH (09:21)
[2018-01-11] MEDS: Aspirin 81 MG TAB.CHEW PO SCH (13:36)
--- NOTE | 2018-01-11 17:11 | Internal Med Progress Note ---
Date of Encounter: 01/11/18 Time of Encounter: 17:03 - Assessment and plan (1) Pneumonia Current Visit: Yes Status: Acute Assessment and plan: January 05. Continue Zithromax and lactobacillus. Will add IV Levaquin January 07. She has remained afebrile for 48 hours. Discontinue antibiotic and probiotic. Qualifiers: Pneumonia type: due to unspecified organism Laterality: bilateral Lung location: unspecified part of lung Qualified Code(s): J18.9 - Pneumonia, unspecified organism (2) CHF (congestive heart failure) Current Visit: Yes Status: Chronic Assessment and plan: January 05. BN peptide 353. Will schedule Lasix January 06. Continue Lasix. Will change labetalol to low-dose Toprol-XL since she has borderline hypotension. Recheck labs in a.m. January 07. BN peptide significantly improved at 138. Continue Lasix, Cozaar, and Toprol. January 11. BN peptide normal at 79. Continue Lasix, Cozaar and Toprol. Qualifiers: Heart failure type: diastolic Heart failure chronicity: chronic Qualified Code(s): I50.32 - Chronic diastolic (congestive) heart failure (3) CKD (chronic kidney disease) stage 3, GFR 30-59 ml/min Current Visit: No Status: Chronic Assessment and plan: January 05. Creatinine minimally changed at 1.00 with estimated GFR 52. Continue to monitor. January 07. Creatinine slightly higher at 1.14. Continue to monitor. January 08. Creatinine improved to 0.89. Continue present regimen. January 11. Creatinine stable at 0.88. Continue present regimen. (4) Hypertension Current Visit: No Status: Chronic Assessment and plan: January 05. Continue Cozaar and labetalol. January 06. Continue Cozaar. Change labetalol to low-dose Toprol-XL January 09. Blood pressure stable. Continue present regimen January 11. Blood pressure stable. Continue Cozaar, Toprol, and diltiazem. Qualifiers: Hypertension type: essential hypertension Qualified Code(s): I10 - Essential (primary) hypertension (5) Anemia Current Visit: Yes Status: Acute Assessment and plan: January 05. Present intermittently since October 2013. Order anemia testing in a.m. January 06. Anemia testing showed iron 11, transferrin saturation 4%, transferrin 213, ferritin 85, B12 1451, and folate > 22.3. Discontinue supplemental B12 and start ferrous sulfate with ascorbic acid in a.m. January 09. Hemoglobin improved to 10.2 yesterday. Continue present regimen January 11. Hemoglobin further improved to 10.5. Continue ferrous sulfate with ascorbic acid. Qualifiers: Anemia type: unspecified type Qualified Code(s): D64.9 - Anemia, unspecified - Subjective Interval history: January 05. She has no new complaints. She states her breathing is slightly improved. She still feels significantly dyspneic and reports cough productive of green/yellow sputum. January 06. She has no new complaints. She feels minimally improved. January 07. She has no new complaints. She states though she is slightly improved she is still significantly weaker than her baseline and does not feel she can go home at this time. January 08. She has no new complaints but states she is still very weak and can hardly transfer from bed to bedside commode. January 09. She has no new complaints. January 10. She has no new complaints. She feels slightly improved. States she is very weak overall and feels she needs therapy to get stronger before retu rning home. January 11. She has no new complaints. - Constitutional Vitals: Temp Pulse Resp BP Pulse Ox 97.5 F L 76 16 141/76 97 01/11/18 06:36 01/11/18 09:18 01/11/18 06:36 01/11/18 09:18 01/11/18 06:36 Exam: She is sitting in a chair at bedside eating supper. She appears in no acute distress. Her affect is bright and cheerful. I reviewed her medications and lab results. Internal Medicine: Result - Labs CBC & Chem 7: 01/11/18 06:04 01/11/18 06:04 Labs: Short CBC 01/11/18 Range/Units 06:04 WBC 6.3 (4.3-11.1) K/mcL Hgb 10.5 L (11.5-15.4) g/dL Hct 32.3 L (35.3-44.9) % Plt Count 295 (140-400) K/mcL Neutrophils # 3.4 (1.6-8.9) K/mcL BMP 01/11/18 06:04 Sodium 138 Potassium 4.3 Chloride 101 Carbon Dioxide 31 H BUN 15 Creatinine 0.88 Glucose 107 H Calcium 8.7 Consult Discharge Plan - Plan Referrals: Tim Castro MD [Primary Care Provider] - 1 week
[2018-01-12] MEDS: Ascorbic Acid 500 MG TABLET PO SCH (06:06)
[2018-01-12] MEDS: Cholecalciferol (D-3) 1,000 UNIT TABLET PO SCH (09:29)
[2018-01-12] MEDS: Metoprolol XL (24 HR) Succ 25 MG TAB.ER.24H PO SCH (09:30)
[2018-01-12] MEDS: [UNRECOGNIZED DRUG - OTHER] PO SCH (09:31)
[2018-01-12] MEDS: Furosemide 40 MG TABLET PO SCH (09:31)
[2018-01-12] MEDS: (Calcium Carbonate/Vitamin D3 [Calcium 250+D Tablet] ) PO SCH (09:33)
[2018-01-12 13:49] VITALS: BP 126/74
--- NOTE | 2018-01-12 15:54 | Discharge Summary ---
Date of Encounter: 01/12/18 Time of Encounter: 15:40 - Discharge Diagnosis (1) Pneumonia Priority: Primary Status: Acute Qualifiers: Pneumonia type: due to unspecified organism Laterality: bilateral Lung location: unspecified part of lung Qualified Code(s): J18.9 - Pneumonia, unspecified organism (2) CHF (congestive heart failure) Priority: Secondary Status: Chronic Qualifiers: Heart failure type: diastolic Heart failure chronicity: chronic Qualified Code(s): I50.32 - Chronic diastolic (congestive) heart failure (3) CKD (chronic kidney disease) stage 3, GFR 30-59 ml/min Priority: Secondary Status: Chronic (4) Hypertension Priority: Secondary Status: Chronic Qualifiers: Hypertension type: essential hypertension Qualified Code(s): I10 - Essential (primary) hypertension (5) Anemia Priority: Secondary Status: Acute Qualifiers: Anemia type: unspecified type Qualified Code(s): D64.9 - Anemia, unspecified Hospital course: Ms. Castro is a 87 year old female who came to emergency room stating she had "sinus drainage" on TuesdayJanuary 01 and did not feel well. She went to urgent care on Tuesday and was examined without x-ray order antibiotic prescribed. She had worsening cough over the next 2 days that came productive of yellow/green sputum. She felt worse the morning of admission so the squad was called. She was brought to emergency room and evaluated and felt to have possible pneumonia with heart failure preach was admitted to [facility] floor for ongoing care needs. Initial orders were written by the emergency room physician. I saw her on January 04 and performed the history and physical. She was started on IV Zithromax in emergency room. IV Levaquin was added for additional spectrum coverage. She continued antibiotics through January 07. She remained afebrile following discontinuation. CBC remained normal and there was no left shift seen on differential. Anemia testing showed iron 11, transferrin saturation 4%, transferrin 213, ferritin 85, B12 1451, and folate >22.3. She was started on ferrous sulfate with vitamin C. Supplemental B12 was discontinued. Hemoglobin was improved to 10.5 on January 11. She will continue ferrous sulfate with vitamin C in swing bed. Creatinine decreased to 0.88. Labetalol was discontinued and she was placed on low-dose Toprol-XL. BN peptide improved to 79. She had physical therapy and occupational therapy evaluations with ongoing intervention. She made satisfactory progress. She felt significantly weak and states she did not feel she was able to go home and care for self. Word was received from her insurance January 12 that she was approved for swing bed stay for ongoing therapy needs. - Time Spent with Patient Total time spent providing and/or coordinating discharge services: - Discharge Medications Home Medications: Cholecalciferol (D-3) [Vitamin D] 2,000 unit PO DAILY #0 03/29/15 [History] Diltiazem [Cardizem] 30 mg PO BID #0 03/29/15 [History] Losartan [Cozaar] 25 mg PO DAILY #0 03/29/15 [History] Mv-Min/FA/Vit K/Lycop/Lut/Zeax [Ocuvite Eye Plus Multi Tablet] 1 each PO DAILY #0 03/29/15 [History] Tramadol HCl [Ultram] 50 mg PO QID PRN #0 03/29/15 [History] Calcium Carbonate/Vitamin D3 [Calcium 250+D Tablet] 1 each PO BID 04/03/15 [History] Potassium Chloride [K-Tab ER] 20 meq PO DAILY 03/18/16 [History] Alendronate Sodium [Fosamax] 70 mg PO QWEEK 08/19/16 [History] Fluticasone Propionate Nasal [Flonase] 50 mcg NS BID PRN 08/19/16 [History] Nitroglycerin [Nitrostat] 0.4 mg SL Q5M PRN 08/19/16 [History] Acetaminophen [Tylenol] 650 mg PO Q6HR PRN #0 tablet 08/20/16 [Rx] Atorvastatin [Lipitor] 80 mg PO HS tablet 08/20/16 [Rx] Loratadine [Claritin] 10 mg PO DAILY PRN #30 tablet 08/18/17 [Rx] Ascorbic Acid [Vitamin C] 500 mg PO DAILY 01/04/18 [History] Albuterol Sulfate [Albuterol Inhaler] 2 puff IH Q4HR PRN #1 hfa.aer.ad 01/12/18 [Rx] Aspirin 81 mg PO Q48H tab.chew 01/12/18 [Rx] Ferrous Sulfate 325 mg PO 0630 tablet 01/12/18 [Rx] Furosemide [Lasix] 40 mg PO DAILY tablet 01/12/18 [Rx] Ipratropium/Albuterol Neb [Duoneb] 3 ml IH [id number] PRN inhsol 01/12/18 [Rx] Metoprolol XL (24 HR) Succ [Toprol Xl] 12.5 mg PO DAILY tab.er.24h 01/12/18 [Rx] Patient Taking Own Medication 0 each PO BID each 01/12/18 [Rx] Allergies/Adverse Reactions: Allergy/AdvReac Type Severity Reaction Status Date / Time cephalexin [From Keflex] Allergy Intermediate swelling Verified 06/28/17 18:12 lips hydrocodone Allergy Intermediate swelling Verified 06/28/17 18:12 lips tongue Date of admission: 01/04/18 14:31 Primary care physician: Tim Castro MD Consults: 01/04/18 17:30 Consult to Pastoral Services [CONS] Routine Comment: Pt. requests hand cultivator in the am or pm for prayer 01/06/18 15:08 Consult to Occupational Therapy [CONS] Routine Comment: Evaluate, develop and implement POC Reason for Consult: weakness Does patient have active BEDREST order?: No Is patient medically & hemodynamically stable?: Yes Patient assessed for mobility or mobilized this visit?: Yes Consult to Physical Therapy [CONS] Routine Comment: Evaluate, develop and implement POC Reason for Consult: weakness Does patient have active BEDREST order?: No Is patient medically & hemodynamically stable?: Yes Patient assessed for mobility or mobilized this visit?: Yes - Constitutional Vitals: Temp Pulse Resp BP Pulse Ox 98.2 F 78 20 126/74 95 01/12/18 13:30 01/12/18 13:30 01/12/18 13:30 01/12/18 13:30 01/12/18 13:30 - Patient Status Disposition: Transfer Hospital Swing Bed Condition: Good - Discharge Instructions - Diet and Activity Activity: as per physical therapy Diet: regular diet
== END 2018-01-12 18:42 | disposition other institution (70) ==
LOC: EMEROOPIK 12:24 → INPPIK 12:24
PROVIDERS: ADMIT Internal Medicine; ATTEND Internal Medicine

== ENCOUNTER 2018-01-12 16:20 | Inpatient (IN) ==
[2018-01-12] MEDS ORDERED: Ipratropium/Albuterol Neb 3 ML IH PRN (18:12)
[2018-01-12] MEDS ORDERED: Nitroglycerin 0.4 MG TAB.SUBL SL PRN (18:12)
[2018-01-12] MEDS ORDERED: Fluticasone Propionate Nasal 50 MCG/SPRAY BOTTLE NS PRN (18:12)
[2018-01-12] MEDS ORDERED: Loratadine 10 MG TABLET PO PRN (18:12)
[2018-01-12] MEDS ORDERED: traMADol 50 MG TABLET PO PRN (18:12)
[2018-01-12] MEDS ORDERED: Acetaminophen 325 MG TABLET PO PRN (18:12)
[2018-01-12] MEDS ORDERED: Naloxone 0.4 MG/ML INJ IM PRN (20:03)
[2018-01-13] MEDS: Metoprolol XL (24 HR) Succ 25 MG TAB.ER.24H PO SCH (08:46)
[2018-01-13] MEDS: Furosemide 40 MG TABLET PO SCH (08:46)
[2018-01-13] MEDS: Ascorbic Acid 500 MG TABLET PO SCH (08:46)
[2018-01-13] MEDS: Cholecalciferol (D-3) 1,000 UNIT TABLET PO SCH (08:46)
[2018-01-13] MEDS: Multivit/Ca/Min/Fe/FA 1 TAB TABLET PO SCH (08:46)
--- NOTE | 2018-01-13 12:36 | Internal Med Progress Note ---
Date of Encounter: 01/13/18 Time of Encounter: 12:25 - Assessment and plan (1) CHF (congestive heart failure) Current Visit: No Status: Chronic Assessment and plan: January 13. Continue Cozaar, Lasix, and Toprol. Qualifiers: Heart failure type: diastolic Heart failure chronicity: chronic Qualified Code(s): I50.32 - Chronic diastolic (congestive) heart failure (2) Atrial fibrillation Current Visit: No Status: Chronic Assessment and plan: January 13. Continue Toprol XL. Aspirin was reduced to lessen anemia. Qualifiers: Atrial fibrillation type: paroxysmal Qualified Code(s): I48.0 - Paroxysmal atrial fibrillation (3) CKD (chronic kidney disease) stage 3, GFR 30-59 ml/min Current Visit: No Status: Chronic Assessment and plan: January 13. Creatinine decreased to 0.88 by January 11. Continue present regimen. (4) Hypertension Current Visit: No Status: Chronic Assessment and plan: January 13. Continue diltiazem, Cozaar, Toprol, and Lasix Qualifiers: Hypertension type: essential hypertension Qualified Code(s): I10 - Essential (primary) hypertension (5) Anemia Current Visit: No Status: Acute Assessment and plan: January 13. Continue ferrous sulfate with vitamin C. Qualifiers: Anemia type: unspecified type Qualified Code(s): D64.9 - Anemia, unspecified - Subjective Interval history: January 13. She was hospitalized in acute-care January 04- after presenting with "sinus drainage" and weakness. She was felt to have pneumonia and heart failure and was admitted to [facility] floor for ongoing care needs. She received antibiotics and probiotic through January 07 and remained asymptomatic following discontinuation. Medications were adjusted and BN peptide improved to 79. PT and OT evaluations with ongoing intervention were done. She was approved for swing bed stay for ongoing therapy needs January 12. She has no new complaints today. - Constitutional Vitals: Temp Pulse Resp BP Pulse Ox 98.3 F 83 17 126/76 91 01/13/18 08:11 01/13/18 08:11 01/13/18 08:11 01/13/18 08:11 01/13/18 07:09 Exam: She is sitting in a chair at bedside resting comfortably. Her affect is bright and cheerful. She is not dyspneic. Reviewed her medications and lab results. Consult Discharge Plan - Plan Referrals: Tim Castro MD [Primary Care Provider] - 1 week
[2018-01-13] MEDS: Aspirin 81 MG TAB.CHEW PO SCH (18:05)
[2018-01-14] MEDS: Cholecalciferol (D-3) 1,000 UNIT TABLET PO SCH (10:13)
[2018-01-14] MEDS: Metoprolol XL (24 HR) Succ 25 MG TAB.ER.24H PO SCH (10:14)
[2018-01-14] MEDS: Multivit/Ca/Min/Fe/FA 1 TAB TABLET PO SCH (10:14)
[2018-01-14] MEDS: Ascorbic Acid 500 MG TABLET PO SCH (10:14)
[2018-01-14] MEDS: Furosemide 40 MG TABLET PO SCH (10:14)
[2018-01-15] MEDS: Ascorbic Acid 500 MG TABLET PO SCH (10:42)
[2018-01-15] MEDS: Cholecalciferol (D-3) 1,000 UNIT TABLET PO SCH (10:43)
[2018-01-15] MEDS: Multivit/Ca/Min/Fe/FA 1 TAB TABLET PO SCH (10:43)
[2018-01-15] MEDS: Metoprolol XL (24 HR) Succ 25 MG TAB.ER.24H PO SCH (10:43)
[2018-01-15] MEDS: Furosemide 40 MG TABLET PO SCH (10:43)
--- NOTE | 2018-01-15 11:49 | Internal Med Progress Note ---
Date of Encounter: 01/15/18 Time of Encounter: 11:40 - Assessment and plan (1) CHF (congestive heart failure) Current Visit: No Status: Chronic Assessment and plan: January 13. Continue Cozaar, Lasix, and Toprol. Qualifiers: Heart failure type: diastolic Heart failure chronicity: chronic Qualified Code(s): I50.32 - Chronic diastolic (congestive) heart failure (2) Atrial fibrillation Current Visit: No Status: Chronic Assessment and plan: January 13. Continue Toprol XL. Aspirin was reduced to lessen anemia. Qualifiers: Atrial fibrillation type: paroxysmal Qualified Code(s): I48.0 - Paroxysmal atrial fibrillation (3) CKD (chronic kidney disease) stage 3, GFR 30-59 ml/min Current Visit: No Status: Chronic Assessment and plan: January 13. Creatinine decreased to 0.88 by January 11. Continue present regimen. (4) Hypertension Current Visit: No Status: Chronic Assessment and plan: January 13. Continue diltiazem, Cozaar, Toprol, and Lasix Qualifiers: Hypertension type: essential hypertension Qualified Code(s): I10 - Essential (primary) hypertension (5) Anemia Current Visit: No Status: Acute Assessment and plan: January 13. Continue ferrous sulfate with vitamin C. Qualifiers: Anemia type: unspecified type Qualified Code(s): D64.9 - Anemia, unspecified - Subjective Interval history: January 13. She was hospitalized in acute-care January 04- after presenting with "sinus drainage" and weakness. She was felt to have pneumonia and heart failure and was admitted to [facility] floor for ongoing care needs. She received antibiotics and probiotic through January 07 and remained asymptomatic following discontinuation. Medications were adjusted and BN peptide improved to 79. PT and OT evaluations with ongoing intervention were done. She was approved for swing bed stay for ongoing therapy needs January 12. She has no new complaints today. January 15. She has no new complaints and feels stronger. She feels she will be able to be discharged home in 2-3 days. - Constitutional Vitals: Temp Pulse Resp BP Pulse Ox 98.2 F 71 16 153/73 95 01/15/18 06:28 01/15/18 06:28 01/15/18 06:28 01/15/18 06:28 01/15/18 06:28 Exam: She is resting comfortably in bed and appears in no acute distress. Her affect is bright and cheerful. I reviewed her medications and lab results. Consult Discharge Plan - Plan Referrals: Tim Castro MD [Primary Care Provider] - 1 week
[2018-01-15] MEDS: Aspirin 81 MG TAB.CHEW PO SCH (17:32)
[2018-01-16] MEDS: Ascorbic Acid 500 MG TABLET PO SCH (09:40)
[2018-01-16] MEDS: Multivit/Ca/Min/Fe/FA 1 TAB TABLET PO SCH (09:40)
[2018-01-16] MEDS: Metoprolol XL (24 HR) Succ 25 MG TAB.ER.24H PO SCH (09:40)
[2018-01-16] MEDS: Cholecalciferol (D-3) 1,000 UNIT TABLET PO SCH (09:40)
[2018-01-16] MEDS: Furosemide 40 MG TABLET PO SCH (09:40)
[2018-01-17 07:33] VITALS: BP 138/70
[2018-01-17] MEDS: Multivit/Ca/Min/Fe/FA 1 TAB TABLET PO SCH (08:34)
[2018-01-17] MEDS: Metoprolol XL (24 HR) Succ 25 MG TAB.ER.24H PO SCH (08:34)
[2018-01-17] MEDS: Furosemide 40 MG TABLET PO SCH (08:34)
[2018-01-17] MEDS: Cholecalciferol (D-3) 1,000 UNIT TABLET PO SCH (08:34)
[2018-01-17] MEDS: Ascorbic Acid 500 MG TABLET PO SCH (08:35)
--- NOTE | 2018-01-17 10:29 | Discharge Summary ---
Date of Encounter: 01/17/18 Time of Encounter: 10:15 - Discharge Diagnosis (1) CHF (congestive heart failure) Priority: Primary Status: Chronic Qualifiers: Heart failure type: diastolic Heart failure chronicity: chronic Qualified Code(s): I50.32 - Chronic diastolic (congestive) heart failure (2) Atrial fibrillation Priority: Secondary Status: Chronic Qualifiers: Atrial fibrillation type: paroxysmal Qualified Code(s): I48.0 - Paroxysmal atrial fibrillation (3) CKD (chronic kidney disease) stage 3, GFR 30-59 ml/min Priority: Secondary Status: Chronic (4) Hypertension Priority: Secondary Status: Chronic Qualifiers: Hypertension type: essential hypertension Qualified Code(s): I10 - Essential (primary) hypertension (5) Anemia Priority: Secondary Status: Acute Qualifiers: Anemia type: unspecified type Qualified Code(s): D64.9 - Anemia, unspecified Hospital course: Ms. Castro is a 87 year old female who was hospitalized in acute-care January 04- after presenting with "sinus drainage" and weakness. She was felt to have pneumonia and heart failure and was admitted to [facility] floor for ongoing care needs. She received antibiotics and probiotic through January 07 and remained asymptomatic following discontinuation. Medications were adjusted and BN peptide improved to 79. PT and OT evaluations with ongoing intervention were done. She was approved for swing bed stay for ongoing therapy needs January 12. She continued therapy intervention in swing bed and progressed satisfactorily with increased strength and endurance. No new problems developed and she wished to be discharged home on January 17. She will continue with therapy as an outpatient. Heart failure medications were continued and she remained asymptomatic. She will continue her present regimen at home. Aspirin remained at 81 mg every other day to lessen anemia. She will continue ferrous sulfate and vitamin C at discharge. She will follow with her PCP Dr. Tim Castro within 1 week. - Time Spent with Patient Total time spent providing and/or coordinating discharge services: - Discharge Medications Prescriptions: Furosemide [Lasix] 40 mg PO DAILY #30 tablet Metoprolol XL (24 HR) Succ [Toprol Xl] 12.5 mg PO DAILY #15 tab.er.24h Potassium Chloride [K-Tab ER] 20 meq PO DAILY #60 tablet.er Home Medications: Cholecalciferol (D-3) [Vitamin D] 2,000 unit PO DAILY #0 03/29/15 [History] Diltiazem [Cardizem] 30 mg PO BID #0 03/29/15 [History] Losartan [Cozaar] 25 mg PO DAILY #0 03/29/15 [History] Mv-Min/FA/Vit K/Lycop/Lut/Zeax [Ocuvite Eye Plus Multi Tablet] 1 each PO DAILY #0 03/29/15 [History] Tramadol HCl [Ultram] 50 mg PO QID PRN #0 03/29/15 [History] Calcium Carbonate/Vitamin D3 [Calcium 250+D Tablet] 1 each PO BID 04/03/15 [History] Alendronate Sodium [Fosamax] 70 mg PO QWEEK 08/19/16 [History] Fluticasone Propionate Nasal [Flonase] 50 mcg NS BID PRN 08/19/16 [History] Nitroglycerin [Nitrostat] 0.4 mg SL Q5M PRN 08/19/16 [History] Acetaminophen [Tylenol] 650 mg PO Q6HR PRN #0 tablet 08/20/16 [Rx] Atorvastatin [Lipitor] 80 mg PO HS tablet 08/20/16 [Rx] Loratadine [Claritin] 10 mg PO DAILY PRN #30 tablet 08/18/17 [Rx] Ascorbic Acid [Vitamin C] 500 mg PO DAILY 01/04/18 [History] Albuterol Sulfate [Albuterol Inhaler] 2 puff IH Q4HR PRN #1 hfa.aer.ad 01/12/18 [Rx] Aspirin 81 mg PO Q48H tab.chew 01/12/18 [Rx] Ferrous Sulfate 325 mg PO 0630 tablet 01/12/18 [Rx] Patient Taking Own Medication 0 each PO BID each 01/12/18 [Rx] Furosemide [Lasix] 40 mg PO DAILY #30 tablet 01/17/18 [Rx] Metoprolol XL (24 HR) Succ [Toprol Xl] 12.5 mg PO DAILY #15 tab.er.24h 01/17/18 [Rx] Potassium Chloride [K-Tab ER] 20 meq PO DAILY #60 tablet.er 01/17/18 [Rx] Allergies/Adverse Reactions: Allergy/AdvReac Type Severity Reaction Status Date / Time cephalexin [From Keflex] Allergy Intermediate swelling Verified 06/28/17 18:12 lips hydrocodone Allergy Intermediate swelling Verified 06/28/17 18:12 lips tongue Date of admission: 01/12/18 18:34 Primary care physician: Tim Castro MD Consults: 01/12/18 16:32 Consult to Occupational Therapy [CONS] Routine Comment: Evaluate, develop and implement POC Reason for Consult: Evaluate, develop and implement POC Does patient have active BEDREST order?: No Is patient medically & hemodynamically stable?: Yes Patient assessed for mobility or mobilized this visit?: Yes Consult to Physical Therapy [CONS] Routine Comment: Evaluate, develop and implement POC Reason for Consult: Evaluate, develop and implement POC Does patient have active BEDREST order?: No Is patient medically & hemodynamically stable?: Yes Patient assessed for mobility or mobilized this visit?: Yes - Constitutional Vitals: Temp Pulse Resp BP Pulse Ox 98.3 F 78 14 138/70 94 01/17/18 07:32 01/17/18 07:32 01/17/18 07:32 01/17/18 07:32 01/17/18 07:32 - Patient Status Disposition: Home, Self-Care - Discharge Instructions Follow Up With: Tim Castro MD [Primary Care Provider] - 1 week - Diet and Activity Activity: as per physical therapy Diet: regular diet
== END 2018-01-17 11:29 | disposition home or self-care (01) | DRG 292 ==
LOC: INPPIK 18:34
PROVIDERS: ADMIT Internal Medicine; ATTEND Internal Medicine